=== PATIENT | male | born 1930 | race Caucasian/White ===

== ENCOUNTER 2017-10-20 11:16 | Inpatient (IN) | payer OTHER ==
[2017-10-20 12:06] VITALS: BMI 29.5
[2017-10-20] MEDS ORDERED: NITROSTAT SL PRN (12:41)
[2017-10-20] MEDS ORDERED: VISTARIL INJ IM PRN (12:41)
[2017-10-20] MEDS ORDERED: MORPHINE 4 MG/ML VIAL IVP PRN (12:41)
[2017-10-20] MEDS ORDERED: TYLENOL PO PRN (12:41)
[2017-10-20] MEDS ORDERED: ATROPINE SULFATE PFS IVP PRN (12:41)
[2017-10-20] MEDS ORDERED: DECADRON 4 MG/ML SDV IM STA (12:47)
[2017-10-20] MEDS ORDERED: XANAX PO PRN (13:04)
[2017-10-20] MEDS: CARDIZEM PO SCH ×2 (14:07→20:42)
[2017-10-20] MEDS: ELIQUIS PO SCH ×2 (14:07→20:43)
[2017-10-20] MEDS: TORADOL IVP SCH ×2 (14:08→20:45)
[2017-10-20] MEDS: HYZAAR 50-12.5 MG TAB PO SCH (14:08)
[2017-10-20] MEDS: ZEBETA PO SCH (14:09)
--- NOTE | 2017-10-20 14:16 | DI ---
Exam: Two views of the chest. Comparison: None available. Reason for exam: Short of breath. FINDINGS: No pneumothorax, pleural effusion, or focal consolidation. The cardiac silhouette is not enlarged. The imaged osseous structures appear grossly unremarkable without evidence of acute fractu re. Impression: No acute cardiopulmonary process.
--- NOTE | 2017-10-20 14:36 | CT ---
EXAM: CT lumbar spine without contrast. HISTORY: Lower back pain COMPARISON: CT abdomen pelvis same day and CT lumbar spine 06/07/2013 TECHNIQUE: Serial axial images of the spine were obtained from the lower thoracic spine through the pelvis without contrast. These were viewed in multiple planes. FINDINGS: Vertebral bodies demonstrate normal height, disc space and alignment. There is no acute c ompression fracture. There are few scattered anterior disc osteophytes. There is moderate facet art hropathy. Posterior processes and transverse processes are normal. There is unchanged area of increas ed density posterior epidural space at T11-T12. L1-L2: There is no central or neural foraminal narrowing. L2-L3: Small broad-based disc bulge and facet arthropathy with no central or neural foraminal narrowi ng. L3-L4: Small broad-based disc bulge and facet arthropathy with mild to moderate neural foraminal narr owing bilaterally. L4-L5: Broad-based disc bulge with mild facet arthropathy. There is bilateral moderate neural forami nal narrowing. L5-S1: Broad-based disc bulge with no central or neural foraminal narrowing. Limited views of the soft tissues are better evaluated on same day CT. IMPRESSION: 1. No acute compression fracture or subluxation. 2. Multilevel degenerative disease with scattered areas of neural foraminal narrowing as above, most pronounced at L4-L5 with moderate bilateral neural foraminal narrowing. 3. No change in the increased density posterior in the epidural space at T11-T12.
--- NOTE | 2017-10-20 14:37 | CT ---
Exam: CT thoracic spine without intravenous contrast. Comparison: None available. Reason for exam: Pain. FINDINGS: There is mild basilar atelectasis. No acute fracture or malalignment. The vertebral body and intervertebral body disc space heights are relatively well maintained. There is a normal appearing thoracic kyphotic curve. No evidence of li sthesis. Impression No acute fracture or listhesis is seen within the thoracic spine.
--- NOTE | 2017-10-20 14:38 | CT ---
EXAM: The abdomen pelvis with contrast HISTORY: Upper abdominal pain, back pain COMPARISON: None TECHNIQUE: CT abdomen pelvis performed with intravenous contrast. Coronal and sagittal reformatted images obtained. FINDINGS: Bilateral gynecomastia. Mild dependent density lung bases. No free air. No acute abnorm alities of the bones. Chronic metallic density in the epidural region T11-T12. Degenerative change in the spine. Please refer to separate report CT spine. Heart normal in size. Liver appears normal. There is a gallstone. Pancreas appears normal. Spleen appears normal. Adrenals appear normal. Ki dneys appear normal. Aorta normal in caliber with moderate calcified and noncalcified atheroscleroti c plaque with minimal atherosclerotic web suggested. Mild bladder wall thickening. Prostate moderate ly enlarged. No lymphadenopathy or ascites. Minimal fat-containing periumbilical hernia. Stomach ap pears normal. No dilated loops small bowel. Appendix appears normal. Colon unremarkable. IMPRESSION: 1. Prostate moderately enlarged. Mild bladder wall thickening may relate to changes of chronic outl et obstruction or cystitis. 2. Cholelithiasis. 3. Atherosclerosis 4. Chronic metallic density in the epidural region T11-T12. Degenerative change in the spine. Pleas e refer to separate report CT spine.
[2017-10-20] MEDS: FERROUS SULFATE PO SCH (20:42)
[2017-10-20] MEDS: XANAX PO SCH (20:42)
[2017-10-20] MEDS: CRESTOR PO SCH (20:44)
[2017-10-20] MEDS ORDERED: NON-FORMULARY MEDICATION (Rosuvastatin Calcium [Crestor] 5 MG) PO SCH (21:00)
[2017-10-20] MEDS ORDERED: CRESTOR PO SCH (21:00)
[2017-10-21] MEDS: PROTONIX PO SCH (06:29)
[2017-10-21] MEDS: TORADOL IVP SCH ×3 (06:29→21:50)
[2017-10-21] MEDS ORDERED: ASPIRIN EC PO SCH (08:00)
[2017-10-21] MEDS: HYZAAR 50-12.5 MG TAB PO SCH (08:50)
[2017-10-21] MEDS: CARDIZEM PO SCH ×2 (08:51→20:14)
[2017-10-21] MEDS: ELIQUIS PO SCH ×2 (08:51→20:16)
[2017-10-21] MEDS: ZEBETA PO SCH (08:51)
[2017-10-21] MEDS: FERROUS SULFATE PO SCH ×2 (08:51→20:15)
[2017-10-21] MEDS: MULTIVITAMIN TABLET PO SCH (08:51)
[2017-10-21] MEDS: ASPIRIN EC PO SCH (08:51)
[2017-10-21] MEDS: FLOMAX PO SCH (08:51)
[2017-10-21] MEDS ORDERED: FLOMAX PO SCH (09:00)
[2017-10-21] MEDS ORDERED: CARDIZEM PO SCH (09:00)
[2017-10-21] MEDS ORDERED: NON-FORMULARY MEDICATION (Multivitamin 1 TAB) PO SCH (09:00)
[2017-10-21] MEDS ORDERED: MULTIVITAMIN TABLET PO SCH (09:00)
[2017-10-21] MEDS ORDERED: FERROUS SULFATE PO SCH (09:00)
[2017-10-21] MEDS: CRESTOR PO SCH (20:15)
[2017-10-21] MEDS: XANAX PO SCH (20:22)
[2017-10-22] MEDS: TORADOL IVP SCH ×3 (05:48→20:59)
[2017-10-22] MEDS: PROTONIX PO SCH (05:49)
[2017-10-22] MEDS: ZEBETA PO SCH (08:58)
[2017-10-22] MEDS: HYZAAR 50-12.5 MG TAB PO SCH (08:58)
[2017-10-22] MEDS: CARDIZEM PO SCH ×2 (08:58→20:19)
[2017-10-22] MEDS: MULTIVITAMIN TABLET PO SCH (08:58)
[2017-10-22] MEDS: ELIQUIS PO SCH ×2 (08:58→20:20)
[2017-10-22] MEDS: FERROUS SULFATE PO SCH ×2 (08:58→20:19)
[2017-10-22] MEDS: ASPIRIN EC PO SCH (08:59)
[2017-10-22] MEDS: FLOMAX PO SCH (08:59)
[2017-10-22] MEDS: CRESTOR PO SCH (20:19)
[2017-10-22] MEDS: XANAX PO SCH (20:20)
[2017-10-23] MEDS: TORADOL IVP SCH ×3 (05:29→21:06)
[2017-10-23] MEDS: PROTONIX PO SCH (05:31)
[2017-10-23] MEDS: CARDIZEM PO SCH ×2 (08:18→20:58)
[2017-10-23] MEDS: HYZAAR 50-12.5 MG TAB PO SCH (08:18)
[2017-10-23] MEDS: MULTIVITAMIN TABLET PO SCH (08:19)
[2017-10-23] MEDS: FLOMAX PO SCH (08:19)
[2017-10-23] MEDS: ASPIRIN EC PO SCH (08:19)
[2017-10-23] MEDS: ZEBETA PO SCH (08:19)
[2017-10-23] MEDS: FERROUS SULFATE PO SCH ×2 (08:19→20:59)
[2017-10-23] MEDS: ELIQUIS PO SCH ×2 (08:20→21:01)
--- NOTE | 2017-10-23 09:08 | PCM.PROG ---
Attending Provider: ATTENDING PROVIDER: Dr. ROBIN VÁZQUEZ This patient is seen with Shiloh Ortiz, Nurse Practitioner. DATE OF SERVICE: 10/23/17 SUBJECTIVE: This 87 year old WHITE/ M was hospitalized 10/20/17. The patient is sitting in the chair, alert. He has had a recent onset of atrial fibrillation over the weekend controlled with Cardizem and Zebeta currently in regular sinus rhythm. The patient is scheduled for an echocardiogram by Dr. Vázquez today. He states his pain is under control however he seems somewhat confused. REVIEW OF SYSTEMS: CONSTITUTIONAL: Weakness. No night sweats. No malaise, lethargy. No fever or chills. HEENT: Eyes: No visual changes. No eye pain. No eye discharge. ENT: No runny nose. No epistaxis. No sinus pain. No odynophagia. No congestion. RESPIRATORY: No cough, no congestion. No hemoptysis. No shortness of breath. CARDIOVASCULAR: No angina symptoms. No CHF symptoms. No atypical chest pain for CAD. No palpitations. No orthopnea.. GASTROINTESTINAL: No abdominal pain. No nausea or vomiting. No diarrhea or constipation. No hematemesis. No hematochezia. GENITOURINARY: No urgency. No frequency. No dysuria. No hematuria. No obstructive symptoms. No discharge. No pain. No significant abnormal bleeding. MUSCULOSKELETAL: No musculoskeletal pain; no joint swelling. NEUROLOGICAL: Awake, alert, oriented to time, place and person. No headache. No neck pain. No syncope. No seizures. No dizziness. PSYCHIATRIC: Not anxious. No depression. No suicidal thoughts. No homicidal thoughts. SKIN: No rash. No lesions. No wounds. ENDOCRINE: No unexplained weight loss. No weight gain. HEMATOLOGIC/LYMPHATIC: No anemia. No purpura. No petechiae. No prolonged or excessive bleeding. No palpable lymph nodes. PHYSICAL EXAMINATION: GENERAL: The patient is awake, alert and oriented to person and place sitting in chair in no distress. VITAL SIGNS: Temperature 97.4 F, Pulse 53, Respiratory Rate 16, BP 115/57, Pulse Ox 95% HEENT: Head normocephalic, atraumatic. Eyes: Extraocular muscles are intact. Pupils are equal, round and reactive to light and accommodation. Ears: No lesions. Nose appeared normal. Throat: No exudate or erythema. NECK: Supple. No JVD, no carotid bruit. No lymphadenopathy or thyromegaly. LUNGS: Diminished breath sounds. Clear to auscultation. Percussion note normal. Chest symmetrical. HEART: Regular rate and rhythm. S1, S2, no S3. No murmurs. No cyanosis or clubbing. No ascites. Pulses: Dorsalis pedis and posterior tibial pulses +1 to +2 both sides. ABDOMEN: Soft. Non-tender. Bowel sounds active. No CVA tenderness. No mass felt. EXTREMITIES: No edema. Full range of motion of all extremities, equal. NEUROLOGIC: No focal deficit. Cranial nerves II through XII are grossly intact. No headache, no double vision or headache. SKIN: Not dry. Intact. Turgor-normal. LYMPHATIC: No palpable lymph nodes/no lymphedema. MUSCULOSKELETAL: Normal joints with no swelling. Muscle tone is normal. LAB REVIEW: 10/23/17 04:05 10/23/17 04:05 10/23/17 04:05: Sodium 142, Potassium 3.8, Chloride 107, Carbon Dioxide 27, Anion Gap 11.8, BUN 43 H, Creatinine 1.89 H, Estimated GFR (MDRD) 34.00, BUN/ Creatinine Ratio 22.75, Glucose 158 H, Calcium 8.7, Total Bilirubin 0.3, AST 12 L, ALT 17, Alkaline Phosphatase 62, Total Protein 6.3, Albumin 3.5, Globulin 2.8 , Albumin/Globulin Ratio 1.25 10/23/17 04:05: WBC 7.83, RBC 3.83 L, Hgb 11.7 L, Hct 35.6 L, MCV 93.0, MCH 30.5 , MCHC 32.9, RDW Coeff of Елена 13.2, Plt Count 147, Immature Gran % (Auto) 0.4, Neut % (Auto) 56.6, Lymph % (Auto) 34.0, [place] % (Auto) 6.1, Eos % (Auto) 2.0, Baso % (Auto) 0.9, Immature Gran # (Auto) 0.0, Neut # (Auto) 4.4, Lymph # (Auto ) 2.7, [place] # (Auto) 0.5, Eos # (Auto) 0.2, Baso # (Auto) 0.1 ASSESSMENT: 1. New onset atrial fibrillation, rate controlled 2. Right sciatica 3. Abdominal pain resolved 4. Chronic kidney disease PLAN: 1. Decrease Eliquis 2.5 mg b.i.d. 2. PT evaluation 3. Echocardiogram today Plan and coordination of the patient's care discussed in the presence of Microelectronics Engineer and nurse. CONDITION: Stable SCRIBED BY: ALIA GARCIA Filter Press Supervisor scribed while in presence of service performed by Dr. Vázquez/Shiloh Ortiz APRN on 10/23/17 ([id number])
--- NOTE | 2017-10-23 11:12 | HP ---
DATE OF SERVICE: 10/20/17 REASON FOR HOSPITALIZATION/HISTORY OF PRESENT ILLNESS: For past two weeks having upper abdominal pain radiates to back-right side of back. No diarrhea or nausea. Midthoracic/lower back. Hard to walk, hurts to move. Also right sciatica type pain. 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 HEENT: No sinus drainage, no sore throat. RESPIRATORY: No cough, no congestion. CARDIOVASCULAR: No atypical chest pain for coronary artery disease. No angina , CHF symptoms, palpitations or shortness of breath. GASTROINTESTINAL: No melena or abdominal pain. No GERD. GENITOURINARY: No hematuria, no prostatism, no polyuria. JEWELRY FACER: No blackout, no dizziness, no headache, no double vision. MUSCULOSKELETAL: Osteoarthritis pain, no joint swelling. ENDOCRINE: No weight loss, Weight gain; 4 pounds. SKIN: Not dry, no rash. PSYCHIATRIC: Not anxious, no depression, no suicidal thoughts, no homicidal thoughts. SOCIAL HISTORY: Marital Status: . Alcohol Usage: No. Tobacco Usage: No. FAMILY HISTORY: Father Mother Brother 1 Sister 2 half sisters MEDICATIONS: Xanax 0.5mg PO daily PRN Eye vitamins Flomax 0.4mg take one daily Aspirin 81mg PO daily Crestor 5mg PO daily Iron two daily Vitamins ALLERGIES: Penicillin Levaquin PHYSICAL EXAMINATION: V/S: Pulse 90, blood pressure 180/74, oxygen saturation 93%. Height 5'8", BMI 30.8 and weight 202.8. GENERAL APPEARANCE: Oriented times three. HEENT: Normal. NECK: No JVP, no bruits. RESPIRATORY: Decreased breath sounds. CARDIOVASCULAR: S1, S2, no S3, no murmurs. No cyanosis, clubbing. No ascites. GI/ABDOMEN: No tenderness. Bowel sounds are active. EXTREMITIES: edema, pulses +1, equal. JEWELRY FACER: Deep tendon reflexes, sensory, motor and gait all normal. RECTAL: 03-04 Dr. Cervantes refused repeat/PROSTATE: 05-14 (3.4). LABS: SED rate 16, Urine negative, CT of the L spine shows no acute compression fracture, scattered areas of neural foraminal narrowing most pronounced at L4- L5. Sodium 141, potassium 3.9, BUN 18, creatinine 1.18, GFR 59, Alkaline phosphatase 85, AST 20, ALT 21, BNP 144, TSH 2.7, hgb 13.4, hct 39.1, plt count 160. Chest x-ray normal. CT of the T spine was normal. CT of the abdomen and pelvis show enlarged prostate, mild bladder wall thickening, Cholelithiasis and Arthrosclerosis. ASSESSMENT: 1. Abdominal pain-back 2. DJD spine, T spine 3. Right sciatica 4. Hypertension 5. Diabetes Mellitus type 2 -18 (5.8) 6. Hyperglycemia 7. Neuralgia 8. Met Syndrome 9. Anemia 10.BPH 11.Chronic kidney disease stage 2 12.Polyarthritis 13.Trigeminal neuralgia 14.Severe DJD spine 15.Obesity 16.Hypogonadism 17.EMANI 18.Hypertension PLAN: 1. Admit 2. Routine telemetry orders 3. Diet regular 4. Hyzaar 50-12.5 PO daily and one now 5. T4 and TSH 6. 1cc Decadron AM 7. Toradol 30mg IV now and Q [address] scan T spine/L spine 9. CT scan abdomen and pelvis with contrast 10.Zebeta 5mg PO daily 11.Flomax 0.4mg PO daily 12.Crestor 5mg PO daily 13.Baby Aspirin PO daily 14.Xanax 0.5mg PO daily 15.Protonix 4mg PO daily 16.BNP/Sed rate and TSH TIME SPENT: More than 70 minutes. MTDD
[2017-10-23] MEDS: CRESTOR PO SCH (20:59)
[2017-10-23] MEDS: XANAX PO SCH (20:59)
[2017-10-24] MEDS: TORADOL IVP SCH ×2 (05:08→12:07)
[2017-10-24] MEDS: PROTONIX PO SCH (05:47)
[2017-10-24] MEDS: FERROUS SULFATE PO SCH (08:40)
[2017-10-24] MEDS: MULTIVITAMIN TABLET PO SCH (08:40)
[2017-10-24] MEDS: CARDIZEM PO SCH (08:40)
[2017-10-24] MEDS: HYZAAR 50-12.5 MG TAB PO SCH (08:40)
[2017-10-24] MEDS: FLOMAX PO SCH (08:41)
[2017-10-24] MEDS: ZEBETA PO SCH (08:41)
[2017-10-24] MEDS: ASPIRIN EC PO SCH (08:41)
[2017-10-24] MEDS: ELIQUIS PO SCH (08:41)
--- NOTE | 2017-10-24 09:38 | PN ---
DATE OF SERVICE: 10/23/17 SUBJECTIVE: The patient has some abdominal pain in the epigastric area. I explained to him that it could be cholelithiasis. He didn't want anything to be done. The patient 's creatinine is 1.8, BUN 43 which is rising and was in atrial fib yesterday. He is off and on noted to be in atrial fib but mainly is in sinus rhythm. The patient's pauses were 1.9 seconds a couple of them noted a couple of days ago. Sciatica is under control but he still has some pain. Hypertension is under control; in fact, his blood pressure is on the lower side. The patient was seen and examined with the nurse practitioner. TIME SPENT: More than 30 minutes. Plan and coordination of the patient's care discussed in the presence of nurse. TARA
[2017-10-24 10:12] VITALS: BP 126/50; TEMP 97.4
--- NOTE | 2017-10-24 14:30 | PN ---
DATE OF SERVICE: 10/24/17 SUBJECTIVE: The patient was seen and examined today. The patient is doing well and he doesn' t have any abdominal pain. Complaining of mild back pain. His problems were hypertension which seems to be well controlled, cholelithiasis which maybe asymptomatic but has abdominal pain intermittently not with food tho. The patient doesn't want to have anything done about it for now as far as cholelithiasis is concerned. The patient has back problems and doesn't want any referred to Neurosurgeon has sciatica. Also he was found to have atrial flutter/ fib intermittent. She was put on Cardizem but lately he has been taken off without Cardizem and just on Hyzaar antihypertensive. His blood pressure is under control and he doesn't need any medicine for his atrial fibrillation at present time. Echo showed LVH with enlarged LA cavity which was 4.2cm with normal LV contractility. He is agreeable for Eliquis and Novel blood thinner. He did decline Warfarin. The patient was explained about Eliquis and it's side effects like GI bleed, intracranial bleed and advised not to take any nonsteroidal inflammatory. REVIEW OF SYSTEMS: CONSTITUTIONAL: No night sweats. No fatigue, malaise, lethargy. No fever or chills. HEENT: Eyes: No visual changes. No eye pain. No eye discharge. ENT: No runny nose. No epistaxis. No sinus pain. No sore throat. No odynophagia. No congestion. RESPIRATORY: No cough, no congestion. No hemoptysis. No shortness of breath. CARDIOVASCULAR: No angina symptoms. No CHF symptoms. No atypical chest pain for CAD. No palpitations. No orthopnea. GASTROINTESTINAL: No abdominal pain. No nausea or vomiting. No diarrhea or constipation. No hematemesis. No hematochezia. GENITOURINARY: No urgency. No frequency. No dysuria. No hematuria. No obstructive symptoms. No discharge. No pain. No significant abnormal bleeding. MUSCULOSKELETAL: No musculoskeletal pain; no joint swelling. NEUROLOGICAL: No headache. No neck pain. No syncope. No seizures. No dizziness. PSYCHIATRIC: Not anxious. No depression. No suicidal thoughts. No homicidal thoughts. SKIN: No rash. No lesions. No wounds. ENDOCRINE: No unexplained weight loss. No weight gain. HEMATOLOGIC/LYMPHATIC: No anemia. No purpura. No petechiae. No prolonged or excessive bleeding. No palpable lymph nodes. PHYSICAL EXAMINATION: HEENT: Head normocephalic, atraumatic. Eyes: Extraocular muscles are intact. Pupils are equal, round and reactive to light and accommodation. Ears: No lesions. Nose appeared normal. Throat: No exudate or erythema. NECK: Supple. No JVD, no carotid bruit. No lymphadenopathy or thyromegaly. LUNGS: Decreased breath sounds but clear to auscultation. Percussion note normal. Chest symmetrical. HEART: S1, S2, no S3. No murmurs. No cyanosis or clubbing. No ascites. Pulses: Dorsalis pedis and posterior tibial pulses +1 to +2 both sides. ABDOMEN: Soft. Nontender. Bowel sounds active. No CVA tenderness. No mass felt. EXTREMITIES: No edema. Full range of motion of all extremities, equal. NEUROLOGIC: No focal deficit. Cranial nerves II through XII are grossly intact. No headache, no double vision or headache. SKIN: Not dry. Intact. Turgor - normal. LYMPHATIC: No palpable lymph nodes/no lymphedema. MUSCULOSKELETAL: Normal joints with no swelling. Muscle tone is normal. ASSESSMENT: 1. Hypertension, controlled 2. Abdominal pain, resolved 3. Back pain, under control 4. History of atrial flutter intermittent paroxysmal PLAN: 1. Declined any further evaluation but line technician 2. CHADS Vasc score is 3 CONDITION: Stable. TIME SPENT: More than 30 minutes. Plan and coordination of the patient's care discussed in the presence of nurse. TARA
--- NOTE | 2017-10-24 16:48 | CM.DICTOOL ---
ADMISSION: 10/20/17 11:16 DISCHARGE: 10/24/17 DATE OF SERVICE: 10/24/17 FINAL DIAGNOSIS ABDOMINAL PAIN SCIATICA, RIGHT HYPERTENSION NEW ONSET ATRIAL FIBRILLATION, PROXYSMAL (STARTED ON ELIQUIS) DEGENERATIVE DISC DISEASE, MULTILEVEL SPINE DM, TYPE 2 (HGAIC 5.8 ON 05/26/17) CHOLELITHIASIS NEURALGIA METABOLIC SYNDDROME ANEMIA BPH CKD, STAGE 2 POLYARTHRITIS TRIGEMINAL NEURALGIA HYPOGONADISM FORMER SMOKER LAST VITALS Temp Pulse Resp BP Pulse Ox 97.4 F L 57 L 20 126/50 L 97 10/24/17 10:00 10/24/17 10:00 10/24/17 10:00 10/24/17 10:00 10/24/17 10:00 TAKE THESE MEDICATIONS AT HOME Alprazolam (Xanax) 0.5 mg PO BEDTIME [facility] Last Admin: 10/23/17 20:59 Dose: 0.5 mg Apixaban (Eliquis) 2.5 mg PO BID [facility] Last Admin: 10/24/17 08:41 Dose: 2.5 mg Aspirin (Aspirin Ec) [facility] Last Admin: 10/24/17 08:41 Dose: 81 mg Bisoprolol Fumarate (Zebeta) 5 mg PO BID [facility] Last Admin: 10/24/17 08:41 Dose: 5 mg Ferrous Sulfate (Ferrous Sulfate) 324 mg PO BID [facility] Last Admin: 10/24/17 08:40 Dose: 324 mg Losartan Potassium (Cozaar 50 Mg Tab) 1 tab PO DAILY [facility] Last Admin: 10/24/17 08:40 Dose: 1 tab Multivitamins (Multivitamin Tablet) 1 tab PO DAILY [facility] Last Admin: 10/24/17 08:40 Dose: 1 tab Pantoprazole Sodium (Protonix) 40 mg PO QDAC [facility] X 30 DAYS ONLY Last Admin: 10/24/17 05:47 Dose: 40 mg Rosuvastatin Calcium (Crestor) 5 mg PO BEDTIME [facility] Last Admin: 10/23/17 20:59 Dose: 5 mg Tamsulosin HCl (Flomax) 0.4 mg PO DAILY [facility] Last Admin: 10/24/17 08:41 Dose: 0.4 mg ALLERGIES levofloxacin [From Levaquin] Adverse Reaction (Verified 10/21/17 01:45) Penicillins Adverse Reaction (Verified 10/21/17 01:46) NEW PRESCRIPTIONS: APIXABAN (ELIQUIS) 2.5 MG PO BID BISOPROLOL FURMARATE (ZEBETA) 5 MG PO BID [place] POTASSIUM (COZAAR) 50 MG PO DAILY PANTOPRAZOLE SODIUM (PROTONIX) 40 MG PO QAM BEFORE BREAKFAST SMOKING: FORMER SMOKER NONE NOW DISEASE SPECIFIC EDUCATION: ATRIAL FIBRILLATION, PAROXYSMAL CHRONIC KIDNEY DISEASE HYPERTENSION ABDOMINAL PAIN DEGENERATIVE DISC DISEASE OF THE SPINE ELIQUIS NEW PRESCRIPTIONS HOME MEDICATIONS FOLLOW UP LAB REVIEW: 10/24/17 04:30 10/24/17 04:30 10/24/17 04:30: Sodium 141, Potassium 3.7, Chloride 107, Carbon Dioxide 26, Anion Gap 11.7, BUN 42 H, Creatinine 1.72 H, Estimated GFR (MDRD) 38.00, BUN/ Creatinine Ratio 24.41, Glucose 121 H, Calcium 8.3, Total Bilirubin 0.4, AST 14 L, ALT 22, Alkaline Phosphatase 64, Total Protein 5.9, Albumin 3.3 L, Globulin 2.6, Albumin/Globulin Ratio 1.27 10/24/17 04:30: WBC 7.76, RBC 3.70 L, Hgb 11.1 L, Hct 33.9 L, MCV 91.6, MCH 30.0 , MCHC 32.7, RDW Coeff of Елена 13.0, Plt Count 141, Immature Gran % (Auto) 0.3, Neut % (Auto) 58.5, Lymph % (Auto) 31.1, [place] % (Auto) 5.9, Eos % (Auto) 3.4, Baso % (Auto) 0.8, Immature Gran # (Auto) 0.0, Neut # (Auto) 4.6, Lymph # (Auto ) 2.4, [place] # (Auto) 0.5, Eos # (Auto) 0.3, Baso # (Auto) 0.1 PLAN: DISCHARGE HOME RETURN TO SEE DR. VÁZQUEZ IN HIS OFFICE ON 10/31/17 AT 10:45 A.M. RESUME YOUR HOME MEDICATIONS PER LIST PROVIDED BY THE NURSING STAFF NEW PRESCRIPTIONS ELIQUIS 2.5 MG, TAKE ONE TABLET BY MOUTH TWICE DAILY BISOPROLOL FUMARATE (ZEBETA) 5 MG, TAKE ONE TABLET BY MOUTH TWICE DAILY [place] POTASSIUM (COZAAR) 50 MG, TAKE ONE TABLET BY MOUTH DAILY PROTONIX 40 MG, TAKE ONE TABLET BEFORE BREAKFAST DAILY FOR 30 DAYS ACTIVITY GET PLENTY OF REST AT HOME. GRADUALLY INCREASE YOUR ACTIVITY LEVEL ACCORDING TO YOUR TOLERATION DIET HEALTHY HEART SUMMARY THE PATIENT IS ALERT AND ORIENTED X3. HE CURRENTLY RESIDES AT HOME ALONE. HIS SONS ARE SUPPORTIVE OF HIS NEEDS WHEN NECESSARY. HE IS INDEPENDENT WITH ADL'S AND REQUIRES NO ASSISTANCE FROM DME, HOME HEALTH OR HOMEMAKING. HE DESIRES TO RETURN HOME AT DISCHARGE. THE SKIN TURGOR IS INTACT. THERE ARE NO DECUBITUS ULCERS PRESENT AT DISCHARGE. HYDRATION AND NUTRITIONAL STATUS ARE IMPROVED SINCE ADMISSION. THE PATIENT'S CARDIAC RHYTHM IS INTERMITTENTLY IN A-FIB WITH A CONTROLLED RATE AND SINUS RHYTHM. HE IS AGREEABLE TO TAKE THE MEDICATIONS PRESCRIBED INCLUDING THE ELIQUIS. HIS RACHEL II SCORE IS 3. HE HAD A 2-D ECHO COMPLETED DURING THIS STAY. EJECTION FRACTION, VALVES AND WALL MOTION ARE NORMAL. HIS BACK PAIN HAS SUBSIDED TO A LEVEL HE IS ABLE TO TOLERATE. MR. ADORNO TELLS US HE DESIRES TO USE TYLENOL [id number] MEDICATION FOR OCCASIONAL BACK PAIN. MR. CORTES IS AWARE OF THE PRESENCE OF CHOLELITHIASIS. IN VIEW OF HIS ADVANCED AGE, HE HAS DECLINED SURGERY AND DESIRES MORE CONSERVATIVE MEASURES TO TREAT SYMPTOMS THEY OCCUR FOR NOW. HIS RENAL LABS HAVE BEGUN TO SHOW IMPROVEMENT. THE KIDNEY FUNCTION WILL BE MONITORED THROUGH OFFICE VISITS. MR. ADORNO IS AWARE AND AGREEABLE FOR TODAY'S DISCHARGE PLANS. HE HAS SHOWN POSITIVE CLINICAL PROGRESS DURING THIS STAY. CURRENT CODE STATUS FULL CODE ROBIN VÁZQUEZ M.D.
--- NOTE | 2017-10-26 14:29 | DS ---
DATE OF SERVICE: 10/24/17 FINAL DIAGNOSIS: ABDOMINAL PAIN SCIATICA, RIGHT HYPERTENSION NEW ONSET ATRIAL FIBRILLATION, PROXYSMAL (STARTED ON ELIQUIS) DEGENERATIVE DISC DISEASE, MULTILEVEL SPINE DM, TYPE 2 (HGAIC 5.8 ON 05/26/17) CHOLELITHIASIS NEURALGIA METABOLIC SYNDDROME ANEMIA BPH CKD, STAGE 2 POLYARTHRITIS TRIGEMINAL NEURALGIA HYPOGONADISM FORMER SMOKER LAST VITALS: Temp Pulse Resp BP Pulse Ox 97.4 F L 57 L 20 126/50 L 97 TAKE THESE MEDICATIONS AT HOME: Alprazolam (Xanax) 0.5 mg PO BEDTIME ALEX Apixaban (Eliquis) 2.5 mg PO BID ALEX Aspirin (Aspirin Ec) 81 mg PO DAILYWM ALEX Bisoprolol Fumarate (Zebeta) 5 mg PO BID ALEX Ferrous Sulfate (Ferrous Sulfate) 324 mg PO BID ALEX Losartan Potassium (Cozaar 50 Mg Tab) 1 tab PO DAILY ALEX Multivitamins (Multivitamin Tablet) 1 tab PO DAILY ALEX Pantoprazole Sodium (Protonix) 40 mg PO QDAC ALEX X 30 DAYS ONLY Rosuvastatin Calcium (Crestor) 5 mg PO BEDTIME ALEX Tamsulosin HCl (Flomax) 0.4 mg PO DAILY ALEX ALLERGIES: levofloxacin [From Levaquin] Adverse Reaction (Verified 10/21/17 01:45) Penicillins Adverse Reaction (Verified 10/21/17 01:46) NEW PRESCRIPTIONS: APIXABAN (ELIQUIS) 2.5 MG PO BID BISOPROLOL FURMARATE (ZEBETA) 5 MG PO BID LOSARTAN POTASSIUM (COZAAR) 50 MG PO DAILY PANTOPRAZOLE SODIUM (PROTONIX) 40 MG PO QAM BEFORE BREAKFAST SMOKING: FORMER SMOKER NONE NOW DISEASE SPECIFIC EDUCATION: ATRIAL FIBRILLATION, PAROXYSMAL CHRONIC KIDNEY DISEASE HYPERTENSION ABDOMINAL PAIN DEGENERATIVE DISC DISEASE OF THE SPINE ELIQUIS NEW PRESCRIPTIONS HOME MEDICATIONS FOLLOW UP PLAN: DISCHARGE HOME RETURN TO SEE DR. VÁZQUEZ IN HIS OFFICE ON 10/31/17 AT 10:45 A.M. RESUME YOUR HOME MEDICATIONS PER LIST PROVIDED BY THE NURSING STAFF ACTIVITY: GET PLENTY OF REST AT HOME. GRADUALLY INCREASE YOUR ACTIVITY LEVEL ACCORDING TO YOUR TOLERATION DIET: [facility] COURSE: 87 year old white male hospitalized with multiple complains of back pain, right sciatica and abdominal pain and hypertension. The patient noted on admission to have atrial fibrillation/flutter with rate of 110 per minute. He was put on Cardizem and his heart rate slowed down to 45 to 50 per minute at times with 1.9 seconds couple of pauses. His blood pressure also went down with Hyzaar and Cardizem combination. Later on the patient was taken off of Cardizem. He stay in sinus rhythm for 2-3 days but later on again went back into atrial fibrillation with normal ventricular response. At the time of discharge he was noted to be in sinus rhythm with first degree AV block. The patient's condition is stable. He was found to have cholelithiasis for which he wants to wait and not have anything done. The diet was discussed. Also doesn't want anything to be done about his back problems except for Tylenol and muscle relaxers. The patient had an echo done which showed LA cavity 4.2 with normal LV contractility with LVH. He was explained about these findings. The patient doesn 't want any referral to the electrophysiologists for now. He was put on Eliquis and side effects of Eliquis with GI bleed and intracranial bleed discussed with the patient. The patient is up and about doing well and back exercises discussed with him. Condition at the time of discharge is stable. TIME SPENT: More than 60 minutes. LEAHD
--- NOTE | 2017-10-26 14:30 | PN ---
10/20/17: Level 5 10/21/17: Intermediate 10/22/17: Intermediate 10/23/17: Intermediate 10/24/17: D as in discharge MTDD
--- NOTE | 2017-10-26 14:32 | ECHO2D ---
Date of Exam: 10/24/17 Ordering Physician: ROBIN VÁZQUEZ MD Room # : 115 Reason for Echo: ATRIAL FIBRILLATION, HYPERTENSION M-Mode Normal Adult Results LV Dimensions Normal Adult Results AoV Opening excursions >1.6 >1.6 LVEDD-base- 3.5-5.8 4.4 Ao root dimensions 2.0-3.7 3.7 LVESD-base- 3.1-4.6 L. Atrium dimensions 1.9-3.8 4.2 Post. Wall thickness 0.8-1.1 1.4 IV septum (thickness) 0.7-1.2 1.4 Post. Wall excursion 0.72-1.3 NORMAL Septal motion NORMAL Systolic motion R. Ventricular cavity 1.5-2.0 NORMAL LVEF 60% 73% Paradoxical septal wall motion NORMAL 2-D : ENLARGED LEFT ATRIAL CAVITY. 2-D M Mode Echocardiogram was performed using apical four chamber and left parasternal long and short axis views. Mitral, tricuspid and aortic valves appear to be normal. Contractility of the left ventricle seems to be normal, so is the cavity size. Left atrial cavity size and aortic root appear to be normal. There is no pericardial effusion. There is no thrombus noted in the left ventricular or left aortic cavity. No mitral valve prolapse noted. M-MODE: MV: NORMAL AV: NORMAL TV: NORMAL PV: CHAMBER SIZE: ENLARGED LEFT ATRIAL CAVITY WALL MOTION: NORMAL PERICARDIUM: NORMAL INTERPRETATION: 1. LEFT VENTRICULAR HYPERTROPHY WITH ENLARGED LEFT ATRIAL CAVITY 2. NORMAL LEFT VENTRICULAR CAVITY 3. NORMAL VALVES MTDD
--- NOTE | 2017-11-08 12:56 | PN ---
DATE OF SERVICE: 10/21/17 SUBJECTIVE: 87 white male hospitalized with abdominal pain, right sciatica and back pain nonspecific but the patient doesn't complain of much throughout his followup for past several years. On admission the patient had atrial fibrillation with rapid ventricle response. He was put on Cardizem twice a day. He is converted to since rhythm but he had some pauses. The patient's blood pressure today is 150/52. The patient has blood pressure systolic more than 180 on admission. REVIEW OF SYSTEMS: CONSTITUTIONAL: No night sweats. No fatigue, malaise, lethargy. No fever or chills. HEENT: Eyes: No visual changes. No eye pain. No eye discharge. ENT: No runny nose. No epistaxis. No sinus pain. No sore throat. No odynophagia. No congestion. RESPIRATORY: No cough, no congestion. No hemoptysis. No shortness of breath. CARDIOVASCULAR: No angina symptoms. No CHF symptoms. No atypical chest pain for CAD. No palpitations. No orthopnea. GASTROINTESTINAL: No abdominal pain. No nausea or vomiting. No diarrhea or constipation. No hematemesis. No hematochezia. Abdominal pain that he was describing epigastric is practically gone. GENITOURINARY: No urgency. No frequency. No dysuria. No hematuria. No obstructive symptoms. No discharge. No pain. No significant abnormal bleeding. MUSCULOSKELETAL: No musculoskeletal pain; no joint swelling. Back pain is much better. Less pain on the side. NEUROLOGICAL: No headache. No neck pain. No syncope. No seizures. No dizziness. PSYCHIATRIC: Not anxious. No depression. No suicidal thoughts. No homicidal thoughts. SKIN: No rash. No lesions. No wounds. ENDOCRINE: No unexplained weight loss. No weight gain. HEMATOLOGIC/LYMPHATIC: No anemia. No purpura. No petechiae. No prolonged or excessive bleeding. No palpable lymph nodes. PHYSICAL EXAMINATION: GENERAL: The patient is oriented to time, place and person. VITAL SIGNS: Temperature 98, pulse 58, respiratory rate 18, blood pressure 150/ 52 and pulse ox 93% HEENT: Head normocephalic, atraumatic. Eyes: Extraocular muscles are intact. Pupils are equal, round and reactive to light and accommodation. Ears: No lesions. Nose appeared normal. Throat: No exudate or erythema. NECK: Supple. No JVD, no carotid bruit. No lymphadenopathy or thyromegaly. LUNGS: Clear to auscultation. Percussion note normal. Chest symmetrical. HEART: S1, S2, no S3. No murmurs. No cyanosis or clubbing. No ascites. Pulses: Dorsalis pedis and posterior tibial pulses +1 to +2 both sides. ABDOMEN: Soft. Nontender. Bowel sounds active. No CVA tenderness. No mass felt. EXTREMITIES: No edema. Full range of motion of all extremities, equal. NEUROLOGIC: No focal deficit. Cranial nerves II through XII are grossly intact. No headache, no double vision or headache. SKIN: Not dry. Intact. Turgor - normal. LYMPHATIC: No palpable lymph nodes/no lymphedema. MUSCULOSKELETAL: Normal joints with no swelling. Muscle tone is normal. LABS: Hgb 12.2, hct 36, WBC 7,400 normal differential, creatinine 1.3, BUN 29, potassium 4, glucose 168, BNP 144 normal. T[address]SH [address] of thoracic spine shows thoracic kyphotic curve otherwise no other acute findings. CT of the lumbar spine shows L4 L5 narrowing with moderate bilateral neural foraminal probably explaining his radiculopathy type of pain. CT of the abdomen and pelvis showed cholelithiasis, arthrosclerosis, chronic metallic density in the epidural region T11 T12. Prostate moderately enlarged, Atherosclerosis noted. ASSESSMENT: 1. Hypertension seems to be under control. The patient is on Hyzaar and also on small dose of Cardizem. 2. Right sciatica seems to be a lot better with Toradol 3. Abdominal pain subsided, the patient is on Protonix 4. 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 All reports discussed with the patient 2. The patient's pain could be from gallbladder dyspepsia CONDITION: Stable. TIME SPENT: More than 30 minutes. Plan and coordination of the patient's care discussed in the presence of nurse. TARA
--- NOTE | 2017-11-08 14:18 | PN ---
DATE OF SERVICE: 10/22/17 SUBJECTIVE: The patient was admitted with several complains; Abdominal pain going to the back with bilateral sciatica mostly on the right and hypertension. The patient' s blood pressure is controlled with blood pressure 113/54. Atrial fibrillation on admission has converted to sinus rhythm. The pauses are no more than a few second pauses noted. The patient also had the right sciatica pain which has subsided, abdominal pain has subsided. The patient has evidence of cholelithiasis. All the reports discussed with the patient with ASHD. The patient has no symptoms. He is up and about. REVIEW OF SYSTEMS: CONSTITUTIONAL: No night sweats. No fatigue, malaise, lethargy. No fever or chills. HEENT: Eyes: No visual changes. No eye pain. No eye discharge. ENT: No runny nose. No epistaxis. No sinus pain. No sore throat. No odynophagia. No congestion. RESPIRATORY: No cough, no congestion. No hemoptysis. No shortness of breath. CARDIOVASCULAR: No angina symptoms. No CHF symptoms. No atypical chest pain for CAD. No palpitations. No orthopnea. GASTROINTESTINAL: No abdominal pain. No nausea or vomiting. No diarrhea or constipation. No hematemesis. No hematochezia. GENITOURINARY: No urgency. No frequency. No dysuria. No hematuria. No obstructive symptoms. No discharge. No pain. No significant abnormal bleeding. MUSCULOSKELETAL: No musculoskeletal pain; no joint swelling. NEUROLOGICAL: No headache. No neck pain. No syncope. No seizures. No dizziness. PSYCHIATRIC: Not anxious. No depression. No suicidal thoughts. No homicidal thoughts. SKIN: No rash. No lesions. No wounds. ENDOCRINE: No unexplained weight loss. No weight gain. HEMATOLOGIC/LYMPHATIC: No anemia. No purpura. No petechiae. No prolonged or excessive bleeding. No palpable lymph nodes. PHYSICAL EXAMINATION: GENERAL: The patient is oriented to time, place and person. VITAL SIGNS: Temperature 98, pulse 63, respiratory rate 16, blood pressure 113/ 50 and pulse ox 93%. HEENT: Head normocephalic, atraumatic. Eyes: Extraocular muscles are intact. Pupils are equal, round and reactive to light and accommodation. Ears: No lesions. Nose appeared normal. Throat: No exudate or erythema. NECK: Supple. No JVD, no carotid bruit. No lymphadenopathy or thyromegaly. LUNGS: Clear to auscultation. Percussion note normal. Chest symmetrical. HEART: S1, S2, no S3. No murmurs. No cyanosis or clubbing. No ascites. Pulses: Dorsalis pedis and posterior tibial pulses +1 to +2 both sides. ABDOMEN: Soft. Nontender. Bowel sounds active. No CVA tenderness. No mass felt. EXTREMITIES: No edema. Full range of motion of all extremities, equal. NEUROLOGIC: No focal deficit. Cranial nerves II through XII are grossly intact. No headache, no double vision or headache. SKIN: Not dry. Intact. Turgor - normal. LYMPHATIC: No palpable lymph nodes/no lymphedema. MUSCULOSKELETAL: Normal joints with no swelling. Muscle tone is normal. LABS: Hgb 12.2, hct 36, WBC 7,400 normal differential, creatinine 1.3, BUN 29, potassium 4. BNP 144, T4 TSH normal. Left atrial cavity is normal size or near normal likely he may not have atrial fibrillation bad enough to be on Novel blood thinners like Eliquis, Xarelto or Pradaxa. ASSESSMENT: 1. Hypertension under control 2. Sciatica controlled with no pain 3. Abdominal pain is under control likely peptic ulcer disease could be mixed with gallbladder disease. The patient declined any evaluation or surgical evaluation for possible cholecystectomy. 4. Atrial fibrillation which was very briefly present, the patient has been in sinus rhythm PLAN: 1. Will do echocardiogram 2. All Novel blood thinners; Coumadin discussed. CONDITION: Stable. TIME SPENT: More than 30 minutes. Plan and coordination of the patient's care discussed in the presence of nurse. TARA
== END 2017-10-24 13:30 | disposition home or self-care (01) | DRG 552 ==
LOC: MEDSURG B 11:16
PROVIDERS: ADMIT Internal Medicine; ATTEND Internal Medicine
DX: M51.34 Other intervertebral disc degeneration, thoracic region (principal); M47.9 Spondylosis, unspecified; M54.6 Pain in thoracic spine; M54.31 Sciatica, right side; M79.2 Neuralgia and neuritis, unspecified; I48.0 Paroxysmal atrial fibrillation; K80.20 Calculus of gallbladder without cholecystitis without obstruction; I10 Essential (primary) hypertension; N18.2 Chronic kidney disease, stage 2 (mild); E11.8 Type 2 diabetes mellitus with unspecified complications; R73.9 Hyperglycemia, unspecified; E88.81 Metabolic syndrome and other insulin resistance; D64.9 Anemia, unspecified; N40.0 Benign prostatic hyperplasia without lower urinary tract symptoms; M13.0 Polyarthritis, unspecified; G50.0 Trigeminal neuralgia; E66.9 Obesity, unspecified; E29.1 Testicular hypofunction; F41.9 Anxiety disorder, unspecified; Z79.01 Long term (current) use of anticoagulants; Z68.29 Body mass index [BMI] 29.0-29.9, adult
CPT/HCPCS: 36415; 80053; 81001; 82550; 82553; 83880; 84439; 84443; 84484; 85025; 85651; 93005; 93010

== ENCOUNTER 2018-08-07 12:14 | Outpatient (POV) | payer OTHER | END 2018-08-07 17:00 | LOC: OUTPT 12:14 | PROVIDERS: ATTEND Otolaryngology | DX: H91.90 Unspecified hearing loss, unspecified ear (principal) | CPT/HCPCS: 92557; 92567 ==

== ENCOUNTER 2018-09-05 11:26 | Inpatient (IN) ==
[2018-09-05] MEDS ORDERED: NITROSTAT SL PRN (11:59)
[2018-09-05] MEDS ORDERED: ATROPINE SULFATE PFS IVP PRN (11:59)
[2018-09-05] MEDS ORDERED: VISTARIL INJ IM PRN (11:59)
[2018-09-05] MEDS ORDERED: TYLENOL PO PRN (11:59)
[2018-09-05 12:21] VITALS: BMI 28.1
[2018-09-05] MEDS: DEXTROSE 5%-1/2NS IV SOLUTION 1,000 ML IV SCH ×2 (13:19→23:50)
--- NOTE | 2018-09-05 13:55 | DI ---
EXAM: Chest two views HISTORY: Syncope, hypotension, status post fall COMPARISON: 10/20/2017 TECHNIQUE: Two views of the chest were performed FINDINGS: The lungs are clear. There is no pleural effusion or pneumothorax. The heart is enlarged , appears increased in size. in size. The mediastinal contour is normal, noting atherosclerosis. Th ere are no acute abnormalities of the bones. Radiopaque density in the spinal region near the lumbosa cral junction. IMPRESSION: Cardiomegaly. Heart appears increased in size and pericardial effusion cannot be exclud ed.
--- NOTE | 2018-09-05 14:20 | CT ---
EXAM: CT ABDOMEN AND PELVIS HISTORY: Fall, back pain, weight loss TECHNIQUE: CT abdomen and pelvis with intravenous contrast. Images were reconstructed using 5 mm se ction thickness. Reformations were prepared. 75 ml Visipaque. FINDINGS: Compared to 10/20/2017. Liver and spleen within normal limits. Small gallstone in an otherwise unremarkable gallbladder. Ea rly fatty lobulation of the pancreas. Adrenal glands are within normal limits. Kidneys have normal enhancement without hydronephrosis or evidence of ureteral obstruction. Moderately severe atheroscle rotic disease. Stomach is unremarkable. Normal appendix. Unremarkable bowel gas pattern. There is circumferential thickening of the urinary bladder wall. Moderate enlargement of the prostate. There is no ascites. No ventral hernia. The bones appear demineralized. Moderate degenerative changes of the spine. No acute fracture is seen. Redemonstration of a metallic density posterior to the T11/T12 interspace, a pparently near the epidural level. This is stable and of indeterminate etiology. Lung bases reveal a new small left pleural effusion with mild adjacent atelectasis. There is a new pericardial effusio n which is probably moderate in volume having an axial dimension of up to 2.1 cm within the field of view of this exam. No pneumoperitoneum is seen. IMPRESSION: 1. Generalized demineralization of the bones with degenerative changes of the spine. No acute fract ure is seen. Redemonstration of a metallic density posterior to the T11/T12 interspace, apparently n ear the epidural level. 2. There is a gallstone noted. 3. Atherosclerosis. 4. Newly developed small left pleural effusion. 5. Newly developed small to moderate pericardial effusion.
--- NOTE | 2018-09-05 14:49 | MRI ---
EXAM: Brain MRI without contrast. HISTORY: Fall with loss of consciousness. COMPARISON: None. TECHNIQUE: Multiplanar, multisequence MR images were acquired of the brain without contrast. FINDINGS: The midline structures are central and the craniocervical junction is unremarkable. The v entricles, sulci and cisterns are mildly enlarged. There are no abnormal extra-axial fluid collectio ns. The brain parenchyma has no diffusion restriction to suggest acute hypoperfusion or infarction. Ther e are small scattered T2 hyperintensities in the supratentorial white matter consistent with minor le ukomalacia. There are no abnormal foci of dark gradient echo signal. The corpus callosum is normal. The sella is mildly expanded and the pituitary gland is flattened inferiorly consistent with a most ly empty sella. There are no intraorbital masses. There has been previous lens surgery bilaterally. Hyperostosis fr ontalis interna is present. There is a well-circumscribed heterogeneous nodular lesion involving the right frontal sinus that measures 1.5 cm AP by 1.9 cm TX by 1.4 cm CC. This has a small central are a of T2 hyperintensity more peripheral dark and intermediate T1 and dark T2 signal. Clinical conside rations include an osseou lesions such as a right frontal osteoma. Head CT could better define the a natomy. Minor scattered mucosal thickening is present in the ethmoid air cells. There is mild polyp oid mucosal thickening in the left maxillary sinus and minor mucosal thickening in the right maxillar y sinus with a small mucous retention cyst or polyp along the posterior wall. The latter is favored. Mucosal thickening and fluid is present in a mild to moderate number of the right mastoid air cells and a moderate number of the left mastoid air cells. Expected flow voids are present in the major intracranial arteries and dural venous sinuses. IMPRESSION: 1. No intracranial hemorrhage or acute cerebral infarct. 2. Mild diffuse cerebral volume loss and minor chronic microvascular ischemic disease. 3. 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 4. Mild to moderate right and moderate left mastoiditis.
--- NOTE | 2018-09-05 14:54 | US ---
EXAM: ULTRASOUND CAROTID DUPLEX, BILATERAL HISTORY: Syncope FINDINGS: Singh-scale ultrasound, color Doppler and spectral analysis was performed. Velocities are in meters per second. By singh scale and color Doppler imaging, there were regions of heterogeneous plaque formation identi fied within the carotid bulbs and internal carotid arteries. At least one of these plaque regions ap peared to approach 50% vessel diameter on the right. RIGHT: External carotid artery peak systolic velocity: 1.18 Common carotid artery peak systolic velocity/end diastolic velocity: 0.58/0.15 Internal carotid artery peak systolic velocity: 1.38 ICA/CCA peak systolic velocity ratio: 2.4 ICA end diastolic velocity: 0.32 LEFT: External carotid artery peak systolic velocity: 0.85 Common carotid artery peak systolic velocity/end diastolic velocity: 0.74/0.19 Internal carotid artery peak systolic velocity: 0.92 ICA/CCA peak systolic velocity ratio: 1.2 ICA end diastolic velocity: 0.29 The right and left vertebral arteries were antegrade. IMPRESSION: 1. By singh scale and color Doppler imaging, there were regions of heterogeneous plaque formation id entified within the carotid bulbs and internal carotid arteries. At least one of these plaque region s appeared to approach 50% vessel diameter on the right. 2. The right internal carotid artery peak systolic velocity of 1.38 meters per second falls within t he moderate range of stenosis. Moderate indicates 50 - 69% vessel diameter. 3. No hemodynamically significant stenosis was demonstrated within the left carotid system. 4. Both tibial arteries were antegrade.
[2018-09-05] MEDS: ELIQUIS PO SCH (20:09)
[2018-09-05] MEDS ORDERED: NON-FORMULARY MEDICATION (Apixaban [Eliquis] 5 MG) PO SCH (21:00)
[2018-09-05] MEDS ORDERED: FLOMAX PO SCH (21:00)
[2018-09-06] MEDS: PROTONIX PO SCH (05:39)
[2018-09-06] MEDS: DEXTROSE 5%-1/2NS IV SOLUTION 1,000 ML IV SCH ×3 (05:40→21:11)
[2018-09-06] MEDS ORDERED: PROTONIX PO SCH (06:30)
[2018-09-06] MEDS ORDERED: FLOMAX ONE (08:34)
[2018-09-06] MEDS: FLOMAX PO SCH ×2 (08:36→20:27)
[2018-09-06] MEDS: ELIQUIS PO SCH ×2 (08:36→20:27)
[2018-09-06] MEDS ORDERED: FLOMAX PO SCH (09:00)
--- NOTE | 2018-09-06 09:28 | PCM.PROG ---
Attending Provider: ATTENDING PROVIDER: Dr. ROBIN VÁZQUEZ This patient is seen with Shiloh Ortiz, Nurse Practitioner. DATE OF SERVICE: 09/06/18 SUBJECTIVE: This 88 year old WHITE/ M was hospitalized 09/05/18. The patient is lying in bed resting comfortably. He had abdominal pain this morning after taking a drink of water. Liver enzymes still elevated. Sed rate elevated. CEA and hepatitis panel pending. REVIEW OF SYSTEMS: CONSTITUTIONAL: Positive for weakness. No night sweats. No fatigue, malaise, lethargy. No fever or chills. HEENT: Eyes: No visual changes. No eye pain. No eye discharge. ENT: No runny nose. No epistaxis. No sinus pain. No odynophagia. No congestion. RESPIRATORY: No cough, no congestion. No hemoptysis. No shortness of breath. CARDIOVASCULAR: No angina symptoms. No CHF symptoms. No atypical chest pain for CAD. No palpitations. No orthopnea.. GASTROINTESTINAL: Positive for abdominal pain. No nausea or vomiting. No diarrhea or constipation. No hematemesis. No hematochezia. GENITOURINARY: No urgency. No frequency. No dysuria. No hematuria. No obstructive symptoms. No discharge. No pain. No significant abnormal bleeding. MUSCULOSKELETAL: No musculoskeletal pain; no joint swelling. NEUROLOGICAL: Awake, alert but has confusion. No headache. No neck pain. No syncope. No seizures. No dizziness. PSYCHIATRIC: Not anxious. No depression. No suicidal thoughts. No homicidal thoughts. SKIN: No rash. No lesions. No wounds. ENDOCRINE: No unexplained weight loss. No weight gain. HEMATOLOGIC/LYMPHATIC: No anemia. No purpura. No petechiae. No prolonged or excessive bleeding. No palpable lymph nodes. PHYSICAL EXAMINATION: GENERAL: The patient is awake, alert and oriented, lying in bed in no distress. VITAL SIGNS: Temperature 98.2 F, Pulse 90, Respiratory Rate 16, BP 110/57, Pulse Ox 96% HEENT: Head normocephalic, atraumatic. Eyes: Extraocular muscles are intact. Pupils are equal, round and reactive to light and accommodation. Ears: No lesions. Nose appeared normal. Throat: No exudate or erythema. NECK: Supple. No JVD, no carotid bruit. No lymphadenopathy or thyromegaly. LUNGS: Diminished breath sounds. Clear to auscultation. Percussion note normal. Chest symmetrical. HEART: Irregular heart rate. S1, S2, no S3. No murmurs. No cyanosis or clubbing. No ascites. Pulses: Dorsalis pedis and posterior tibial pulses +1 to +2 both sides. ABDOMEN: Soft. Generalized abdominal tenderness. Bowel sounds active. No CVA tenderness. No mass felt. EXTREMITIES: No edema. Full range of motion of all extremities, equal. NEUROLOGIC: No focal deficit. Cranial nerves II through XII are grossly intact. No headache, no double vision or headache. SKIN: Not dry. Intact. Turgor-normal. LYMPHATIC: No palpable lymph nodes/no lymphedema. MUSCULOSKELETAL: Normal joints with no swelling. Muscle tone is normal. LAB REVIEW: 09/06/18 04:43 09/06/18 04:43 09/06/18 04:43: Sodium 138.0, Potassium 3.79, Chloride 102.8, Carbon Dioxide 26.2, Anion Gap 12.79, BUN 22.1 H, Creatinine 1.32 H, Estimated GFR (MDRD) 51.00 , BUN/Creatinine Ratio 16.74, Glucose 138.7 H, Calcium 8.49, Total Bilirubin 0.67, AST 116.6 H, ALT 278.7 H, Alkaline Phosphatase 128.5 H, Total Protein 6.25 L, Albumin 3.58, Globulin 2.67, Albumin/Globulin Ratio 1.34 09/06/18 04:43: WBC 6.23, RBC 3.11 L, Hgb 9.1 L, Hct 29.3 L, MCV 94.2 H, MCH 29.3, MCHC 31.1 L, RDW Coeff of Елена 12.8, Plt Count 307, Immature Gran % (Auto) 0.6, Neut % (Auto) 64.5, Lymph % (Auto) 22.6, [place] % (Auto) 5.9, Eos % (Auto) 5.8, Baso % (Auto) 0.6, Immature Gran # (Auto) 0.0, Neut # (Auto) 4.0, Lymph # ( Auto) 1.4, Stewart # (Auto) 0.4, Eos # (Auto) 0.4, Baso # (Auto) 0.0 09/05/18 20:16: Total Creatine Kinase 64.5, Troponin I < 0.012 09/05/18 16:28: Carcinoembryonic Ag 2.2, Hepatitis A IgM Ab Negative, Hep Bs Antigen Negative, Hep B Core IgM Ab Negative, Hep C Ab Signal/Cutoff < 0.1 09/05/18 16:28: Amylase 50.6, Lipase 45.6 09/05/18 16:28: ESR 96 H 09/05/18 13:10: Urine Color Yellow, Urine Clarity Clear, Urine pH 5.5, Ur Specific [place] 1.015, Urine Protein Trace, Urine Glucose (UA) Negative, Urine Ketones Negative, Urine Blood Negative, Urine Nitrite Negative, Urine Bilirubin Negative, Urine Urobilinogen 1.0, Ur Leukocyte Esterase Negative, Ur Squamous Epith Cells 5-10, Urine Mucus 1+ 09/05/18 12:12: Free T4 1.22 09/05/18 12:12: Sodium 139.8, Potassium 4.13, Chloride 103.6, Carbon Dioxide 27.6, Anion Gap 12.73, BUN 25.4 H, Creatinine 1.43 H, Estimated GFR (MDRD) 47.00 , BUN/Creatinine Ratio 17.76, Glucose 123.3 H, Calcium 9.04, Total Bilirubin 0.81, AST 109.7 H, ALT 284.1 H, Alkaline Phosphatase 136.5 H, Total Creatine Kinase 74.2, Troponin I < 0.012, Total Protein 6.91, Albumin 4.07, Globulin 2.84 , Albumin/Globulin Ratio 1.43, TSH 2.460 09/05/18 12:12: WBC 5.69, RBC 3.27 L, Hgb 9.7 L, Hct 30.8 L, MCV 94.2 H, MCH 29.7, MCHC 31.5 L, RDW Coeff of Елена 12.8, Plt Count 291, Immature Gran % (Auto) 0.5, Neut % (Auto) 74.6, Lymph % (Auto) 15.6, Stewart % (Auto) 5.6, Eos % (Auto) 3.0, Baso % (Auto) 0.7, Immature Gran # (Auto) 0.0, Neut # (Auto) 4.2, Lymph # ( Auto) 0.9, Stewart # (Auto) 0.3 L, Eos # (Auto) 0.2, Baso # (Auto) 0.0 09/05/18 12:10: Puncture Site Rrad, O2 Saturation 98.0, ABG pH 7.448, ABG pCO2 33.2 L, ABG pO2 93.0, ABG HCO3 22.9, ABG Total CO2 24, ABG Base Excess -1, Moncho Test +, FiO2 % 21.0 ASSESSMENT: 1. Abdominal pain. 2. Confusion. 3. Atrial fibrillation on Eliquis. 4. Anemia. 5. Elevated liver function. PLAN: 1. Carafate 1 gm t.i.d. 2. Labs pending. 3. Increase Flomax to b.i.d. 4. Decrease IV fluids to 75 mm/hr. 5. Bladder scan. 6. Continue to hold Zebeta. Plan and coordination of the patient's care discussed in the presence of Wireless Sales Representative and nurse. CONDITION: Stable SCRIBED BY: ALIA GARCIA Tool Maker scribed while in presence of service performed by Dr. Vázquez/Shiloh Ortiz APRN on 09/06/18 ([id number])
[2018-09-06] MEDS ORDERED: CARAFATE PO SCH ×2 (11:00)
--- NOTE | 2018-09-06 11:24 | RS.PTINEVL ---
Subjective - Patient information Date of Evaluation: 09/06/18 Date of Arrival on Unit: 09/05/18 Admitted From:: Home Diagnosis: syncope, hypotension, dehydration, weight loss, h/o falls Usual Living Arrangement: Alone Living Arrangement Comments: lives alone, sons live in [place]. Home Environment: House, Stairs (few), Rail Medical History: Hypertension, Arthritis LATEX ALLERGY?: No Medications: see chart Subjective Information/ Patient Comments:: pt states he has had falls recently. pt states that he has had increased difficulty walking and standing to perform ADL's due to dizziness. - Level of function Prior to this admission, the patient could do the following:: Independent ADL's , Independent Ambulation, Perform Head Teller/Cooking, Drive Abilities prior to this admission: however did have h/o falls Current Level of Function: Partially Dependent Current Equipment Used at Home: cane, walker, does not use Interventions - Objective Patient Orientation: Person, Place Current Interventions: IV's, Telemetry Range of Motion - ROM Right Upper Extremity AROM: WFL's Left Upper Extremity AROM: WFL's Right Lower Extremity AROM: WFL's (WFL's with pain with knee flex) Left Lower Extremity AROM: WFL's Muscle Strength - Muscle Strength Right Upper Extremity Strength: Mild Weakness (grossly 4/5) Left Upper Extremity Strength: Mild Weakness (grossly 4/5) Right Lower Extremity Strength: Mild Weakness (hip flex 4-/5, knee flex/ext 4/5 , ankle DF/PF 4/5) Left Lower Extremity Strength: Mild Weakness (hip flex 4/5, knee flex/ext 4/5, ankle DF/PF 4/5) Sensation - Sensation Right Upper Extremity Sensation: Intact/Normal Left Upper Extremity Sensation: Intact/Normal Right Lower Extremity Sensation: Intact/Normal Left Lower Extremity Sensation: Intact/Normal Palpation Palpation Findings: None/Normal Balance - Sitting Balance and Reactions Static Sitting Balance: Good Dynamic Sitting Balance: Fair Sitting Equilibrium Reactions: Delayed Left, Delayed Right Sitting Protective Reactions: Delayed Left, Delayed Right - Standing Balance and Reactions Static Standing Balance: Poor Dynamic Standing Balance: Poor Standing Equilibrium Reactions: Delayed Left, Delayed Right Standing Protective Reactions: Delayed Left, Delayed Right Functional Mobility - Bed Mobility Rolling R/L: Supervision Supine to Sit: Supervision - Transfers Sit to Stand: CGA Stand to Sit: CGA - Safety Awareness Safety Awareness: Good АННА INDEX SCORE: n/a Ambulation - Ambulation Assistive Device Used: Rolling Walker Orthotic/Prosthetic Device: No Distance: 75ft Assistance needed with Ambulation: CGA, 1 person assist, 2 person assist Quality of Ambulation: pt amb with CGA x 1 +1 for IV. pt with flexed posture, decreased step length, requires assist to guide rwx. Gait Deviations: Forward posture, Short stride, Deviates from path Factors Affecting Ambulation: Decreased Balance, Weakness, Dizziness, Decreased Safety, Cognitive Status, Limited Endurance Treatment time - Time with patient Length of Evaluation: 21 Total treatment time: 24 Patient Education - Education Patient Education: Activity Modification, Education of Plan of Care Teaching Recipient: Patient Teaching Methods: Discussion Comments: discussioin regarding POC Assessment - Assessment Problem List:: Decreased level of function, Requires training/education, Decreased safety/Risk of falls, Weakness, Cognitive status limits abilities Rehab Potential: Good Further Therapy Indicated?: Yes Candidate for Swing Bed for Therapy Services?: Feel pt may not be a candidate for swing bed for therapy due to pt is at higher functional level. Feel pt would benefit from home health PT after DC. Evaluation Complexity: HISTORY: Medium, EXAM OF BODY SYSTEMS: Medium, CLINICAL PRESENTATION: Medium, CLINICAL DECISION MAKING: Medium Short Term Goals GOAL #1: pt demonstrate rolling and scooting in bed independently Goal to be met by: 09/09/18 GOAL #2: Transfer sup to/from sit independently Goal to be met by: 09/09/18 GOAL #3: Transfer sit to/from stand SBA to CGA Goal to be met by: 09/09/18 GOAL #4: pt amb with rwx 100ft with CGA with no LOB, no c/o dizziness Goal to be met by: 09/09/18 Geophysical Prospector Goals GOAL #1: pt transfer sit to/from stand SBA to indepedent Goal to be met by: 09/11/18 GOAL #2: pt amb functional household distances with rwx no LOB SBA Goal to be met by: 09/11/18 GOAL #3: Improve dyn stand balance fair+ Goal to be met by: 09/11/18 Plan Plan of Care: Therapeutic EX, Therapeutic Activity Other:: gait training Frequency of Treatment: 1-2 X day, as tolerated Duration of Treatment: 5 days Anticipated Discharge Destination: Home Treatment Diagnosis (ICD 10 Codes): R 26.2 difficulty walking. M62.81 muscle weakness. R 26.81 balance impaired Has the Physician been added for Co-signature?: Yes
[2018-09-06] MEDS ORDERED: DECADRON 4 MG/ML SDV IM STA (13:20)
[2018-09-06] MEDS: CARAFATE PO SCH (16:42)
[2018-09-07] MEDS: PROTONIX PO SCH (05:46)
[2018-09-07] MEDS: CARAFATE PO SCH ×3 (05:46→17:03)
[2018-09-07] MEDS: ZOLOFT PO SCH (08:19)
[2018-09-07] MEDS: FLOMAX PO SCH ×2 (08:19→20:13)
[2018-09-07] MEDS: ELIQUIS PO SCH ×2 (08:19→20:14)
--- NOTE | 2018-09-07 09:04 | PCM.PROG ---
Attending Provider: ATTENDING PROVIDER: Dr. ROBIN VÁZQUEZ DATE OF SERVICE: 09/07/18 SUBJECTIVE: This 88 year old WHITE/ M was hospitalized 09/05/18. The patient is resting comfortably. He is eating well. Hemoglobin is down likely from hemodilution. He is still having some dizziness and weakness. PT has picked him up. Abdominal pain improved. REVIEW OF SYSTEMS: CONSTITUTIONAL: Positive for weakness. No night sweats. No fatigue, malaise, lethargy. No fever or chills. HEENT: Eyes: No visual changes. No eye pain. No eye discharge. ENT: No runny nose. No epistaxis. No sinus pain. No odynophagia. No congestion. RESPIRATORY: No cough, no congestion. No hemoptysis. No shortness of breath. CARDIOVASCULAR: No angina symptoms. No CHF symptoms. No atypical chest pain for CAD. No palpitations. No orthopnea.. GASTROINTESTINAL: No abdominal pain. No nausea or vomiting. No diarrhea or constipation. No hematemesis. No hematochezia. GENITOURINARY: No urgency. No frequency. No dysuria. No hematuria. No obstructive symptoms. No discharge. No pain. No significant abnormal bleeding. MUSCULOSKELETAL: No musculoskeletal pain; no joint swelling. NEUROLOGICAL: Awake, alert, confusion. No headache. No neck pain. No syncope. No seizures. No dizziness. PSYCHIATRIC: Not anxious. No depression. No suicidal thoughts. No homicidal thoughts. SKIN: No rash. No lesions. No wounds. ENDOCRINE: No unexplained weight loss. No weight gain. HEMATOLOGIC/LYMPHATIC: No anemia. No purpura. No petechiae. No prolonged or excessive bleeding. No palpable lymph nodes. PHYSICAL EXAMINATION: GENERAL: The patient is awake, alert sitting in chair in no distress. VITAL SIGNS: Temperature 97.6 F, Pulse 65, Respiratory Rate 18, BP 130/58, Pulse Ox 98% HEENT: Head normocephalic, atraumatic. Eyes: Extraocular muscles are intact. Pupils are equal, round and reactive to light and accommodation. Ears: No lesions. Nose appeared normal. Throat: No exudate or erythema. NECK: Supple. No JVD, no carotid bruit. No lymphadenopathy or thyromegaly. LUNGS: Diminished breath sounds. Clear to auscultation. Percussion note normal. Chest symmetrical. HEART: Small pericardial rub, irregular heart rate. S1, S2, no S3. No murmurs. No cyanosis or clubbing. No ascites. Pulses: Dorsalis pedis and posterior tibial pulses +1 to +2 both sides. ABDOMEN: Soft. Non-tender. Bowel sounds active. No CVA tenderness. No mass felt. EXTREMITIES: No edema. Full range of motion of all extremities, equal. NEUROLOGIC: No focal deficit. Cranial nerves II through XII are grossly intact. No headache, no double vision or headache. SKIN: Warm and dry. Intact. Turgor-normal. LYMPHATIC: No palpable lymph nodes/no lymphedema. MUSCULOSKELETAL: Normal joints with no swelling. Muscle tone is normal. LAB REVIEW: 09/07/18 05:10 09/07/18 05:10 09/07/18 05:10: Sodium 137.8, Potassium 4.24, Chloride 105.6, Carbon Dioxide 26.2, Anion Gap 10.24, BUN 19.3, Creatinine 1.23 H, Estimated GFR (MDRD) 56.00, BUN/Creatinine Ratio 15.69, Glucose 141.9 H, Calcium 8.51, Total Bilirubin 0.48 , AST 79.1 H D, ALT 243.6 H D, Alkaline Phosphatase 113.1, Total Protein 6.02 L , Albumin 3.38 L, Globulin 2.64, Albumin/Globulin Ratio 1.28 09/07/18 05:10: WBC 5.53, RBC 2.98 L, Hgb 8.7 L, Hct 28.0 L, MCV 94.0, MCH 29.2 , MCHC 31.1 L, RDW Coeff of Елена 12.6, Plt Count 273, Immature Gran % (Auto) 0.7 , Neut % (Auto) 72.4, Lymph % (Auto) 18.8, [place] % (Auto) 5.8, Eos % (Auto) 1.8, Baso % (Auto) 0.5, Immature Gran # (Auto) 0.0, Neut # (Auto) 4.0, Lymph # (Auto ) 1.0, [place] # (Auto) 0.3 L, Eos # (Auto) 0.1, Baso # (Auto) 0.0 09/05/18 16:28: DUGLAS Screen Negative ASSESSMENT: 1. Pericardial effusion with pericarditis likely from previous viral infection. 2. Elevated liver enzymes likely from previous viral infection. 3. Anemia. 4. Dizziness. 5. Intermittent confusion. 6. Atrial fibrillation. PLAN: 1. PT/OT 2. D/C fluids 3. Viral respiratory panel 4. Zoloft 50 mg daily The patient was seen and examined with the nurse practitioner. Plan and coordination of the patient's care discussed in the presence of Rock Picker and nurse. CONDITION: Stable SCRIBED BY: ALIA GARCIA Ornamental Painter scribed while in presence of service performed by Dr. ROBIN VÁZQUEZ on 09/07/18 ([id number])
--- NOTE | 2018-09-07 14:54 | HP ---
DATE OF SERVICE: 09/05/18 REASON FOR HOSPITALIZATION/HISTORY OF PRESENT ILLNESS: 88 year old white male passed out day before yesterday in the kitchen. He felt himself going down, knees buckled but he did not hit his head. He came to sense he was on the floor. He felt weak. No nausea or vomiting. This AM feeling better but after shower felt weak. Abdomen bloated/something there that is not supposed to be there i.e. pressure. PAST MEDICAL HISTORY: Syncope Hypotension Anemia Atrial fibrillation DJD spine History of hypertension Diabetes Mellitus type 2 BPH Chronic kidney disease stage 3 Hyperglycemia PAST SURGICAL HISTORY: None REVIEW OF SYSTEMS: CONSTITUTIONAL: No fever, Fatigue. HEENT: No sinus drainage, no sore throat. RESPIRATORY: No cough, no congestion. CARDIOVASCULAR: No atypical chest pain for coronary artery disease. No angina , CHF symptoms, palpitations or shortness of breath. GASTROINTESTINAL: No melena or abdominal pain. No GERD. GENITOURINARY: No hematuria, no prostatism, no polyuria. RETAIL ACCOUNT EXECUTIVE: No blackout, Dizziness, no headache, no double vision. MUSCULOSKELETAL: Osteoarthritis pain, no joint swelling. ENDOCRINE: Weight loss; 8 pounds in 2 weeks. Appetite not good, no weight gain. SKIN: Not dry, no rash. PSYCHIATRIC: Anxious, no depression, no suicidal thoughts, no homicidal thoughts. SOCIAL HISTORY: Marital Status: . Alcohol Usage: No. Tobacco Usage: No. FAMILY HISTORY: Father Mother Brother 1 Sister 2 half sisters MEDICATIONS: Bisoprolol fumarate 5mg PO twice a day Losartan 50mg PO daily Protonix 40mg PO daily Xanax 0.5mg Po daily Eye vitamins and Multivitamin PO daily Flomax 0.4mg PO daily Aspirin 81mg PO daily Crestor 5mg Po daily Ferrous sulfate PO daily Eliquis 5mg PO daily ALLERGIES: Levaquin PHYSICAL EXAMINATION: V/S: Pulse 88, blood pressure 92/44, temperature 97.8, oxygen saturation 93%. Height 5'8, weight 185.4 and BMI 28.2. GENERAL APPEARANCE: Oriented times three. HEENT: Normal. NECK: No JVP, no bruits. RESPIRATORY: Lungs are clear. CARDIOVASCULAR: S1, S2, no S3, no murmurs. No cyanosis, clubbing. No ascites. GI/ABDOMEN: No tenderness. Bowel sounds are active. EXTREMITIES: edema, pulses +1, equal. RETAIL ACCOUNT EXECUTIVE: Deep tendon reflexes, sensory, motor and gait all normal. RECTAL: 11-11 Dr. Cervantes refused repeat/PROSTATE: 5-14 (3.4). ASSESSMENT: 1. Syncope 2. Hypotension 3. Weight loss 4. Dehydration 5. Abdominal discomfort 6. Restless 7. Ataxia 8. Depression 9. 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 Admit special care 2. Routine Telemetry orders 3. BNP 4. Carotid scan 5. MRI of Brain with contrast 6. CT scan of abdomen and pelvis with contrast 7. T4, TSH and ABG 8. 1000cc D5 1/2 normal saline 8 hours 9. Elevate legs 10.Flomax 0.4mg at HS daily 11.Eliquis 5mg Po twice a day 12.Protonix 40mg PO QAM TIME SPENT: More than 70 minutes. MTDD
[2018-09-08] MEDS: PROTONIX PO SCH (05:54)
[2018-09-08] MEDS: CARAFATE PO SCH ×3 (05:54→16:54)
[2018-09-08] MEDS: ELIQUIS PO SCH ×2 (08:06→20:39)
[2018-09-08] MEDS: FLOMAX PO SCH (08:06)
[2018-09-08] MEDS: ZOLOFT PO SCH (08:06)
[2018-09-08] MEDS ORDERED: DECADRON 4 MG/ML SDV IM STA (11:16)
[2018-09-08] MEDS: BIAXIN PO SCH ×2 (11:59→16:54)
[2018-09-08] MEDS: FLAGYL PO SCH ×2 (11:59→20:38)
[2018-09-08] MEDS: PEPTO-BISMOL CHEW PO SCH ×3 (12:08→20:40)
[2018-09-09] MEDS: CARAFATE PO SCH ×3 (05:39→16:38)
[2018-09-09] MEDS: PROTONIX PO SCH (05:39)
[2018-09-09] MEDS: ELIQUIS PO SCH ×2 (08:45→20:44)
[2018-09-09] MEDS: BIAXIN PO SCH ×2 (08:45→16:40)
[2018-09-09] MEDS: FLOMAX PO SCH ×2 (08:45→20:44)
[2018-09-09] MEDS: FLAGYL PO SCH ×2 (08:45→20:43)
[2018-09-09] MEDS: ZOLOFT PO SCH (08:46)
[2018-09-09] MEDS: PEPTO-BISMOL CHEW PO SCH ×3 (08:50→20:44)
[2018-09-09] MEDS: COREG PO SCH (16:39)
[2018-09-10 05:02] VITALS: BP 132/63; TEMP 97.7
[2018-09-10] MEDS: CARAFATE PO SCH ×2 (05:39→10:29)
[2018-09-10] MEDS: PROTONIX PO SCH (05:40)
[2018-09-10] MEDS: BIAXIN PO SCH (08:31)
[2018-09-10] MEDS: PEPTO-BISMOL CHEW PO SCH (08:32)
[2018-09-10] MEDS: ZOLOFT PO SCH (08:32)
[2018-09-10] MEDS: FLOMAX PO SCH (08:32)
[2018-09-10] MEDS: FLAGYL PO SCH (08:32)
[2018-09-10] MEDS: COREG PO SCH (08:32)
[2018-09-10] MEDS: ELIQUIS PO SCH (08:33)
--- NOTE | 2018-09-10 09:15 | PCM.PROG ---
Attending Provider: ATTENDING PROVIDER: Dr. ROBIN VÁZQUEZ This patient is seen with Shiloh Ortiz, Nurse Practitioner. DATE OF SERVICE: 09/10/18 SUBJECTIVE: This 88 year old WHITE/ M was hospitalized 09/05/18. The patient is sitting in chair resting comfortably. He started treatment for H. Pylori over weekend. Abdominal pain seems improved. He was tachycardic over the weekend but Coreg seems to have resolved the issue. The patient still complains of weakness. REVIEW OF SYSTEMS: CONSTITUTIONAL: Positive for weakness. No night sweats. No fatigue, malaise, lethargy. No fever or chills. HEENT: Eyes: No visual changes. No eye pain. No eye discharge. ENT: No runny nose. No epistaxis. No sinus pain. No odynophagia. No congestion. RESPIRATORY: No cough, no congestion. No hemoptysis. No shortness of breath. CARDIOVASCULAR: No angina symptoms. No CHF symptoms. No atypical chest pain for CAD. No palpitations. No orthopnea.. GASTROINTESTINAL: No abdominal pain. No nausea or vomiting. No diarrhea or constipation. No hematemesis. No hematochezia. GENITOURINARY: No urgency. No frequency. No dysuria. No hematuria. No obstructive symptoms. No discharge. No pain. No significant abnormal bleeding. MUSCULOSKELETAL: No musculoskeletal pain; no joint swelling. NEUROLOGICAL: Awake, alert, oriented to time, place and person. No headache. No neck pain. No syncope. No seizures. Positive for dizziness. PSYCHIATRIC: Not anxious. No depression. No suicidal thoughts. No homicidal thoughts. SKIN: No rash. No lesions. No wounds. ENDOCRINE: No unexplained weight loss. No weight gain. HEMATOLOGIC/LYMPHATIC: No anemia. No purpura. No petechiae. No prolonged or excessive bleeding. No palpable lymph nodes. PHYSICAL EXAMINATION: GENERAL: The patient is awake, alert and oriented, sitting in chair in no distress. VITAL SIGNS: Temperature 97.7 F, Pulse 69, Respiratory Rate 18, BP 132/63, Pulse Ox 97% HEENT: Head normocephalic, atraumatic. Eyes: Extraocular muscles are intact. Pupils are equal, round and reactive to light and accommodation. Ears: No lesions. Nose appeared normal. Throat: No exudate or erythema. NECK: Supple. No JVD, no carotid bruit. No lymphadenopathy or thyromegaly. LUNGS: Diminished breath sounds. Clear to auscultation. Percussion note normal. Chest symmetrical. HEART: S1, S2, no S3. No murmurs. No cyanosis or clubbing. No ascites. Pulses: Dorsalis pedis and posterior tibial pulses +1 to +2 both sides. ABDOMEN: Soft. Non-tender. Bowel sounds active. No CVA tenderness. No mass felt. EXTREMITIES: No edema. Full range of motion of all extremities, equal. NEUROLOGIC: No focal deficit. Cranial nerves II through XII are grossly intact. No headache, no double vision or headache. SKIN: Not dry. Intact. Turgor-normal. LYMPHATIC: No palpable lymph nodes/no lymphedema. MUSCULOSKELETAL: Normal joints with no swelling. Muscle tone is normal. LAB REVIEW: 09/10/18 04:53 09/10/18 04:53 09/10/18 04:53: Sodium 138.2, Potassium 3.75, Chloride 102.6, Carbon Dioxide 26.7, Anion Gap 12.65, BUN 23.7 H, Creatinine 1.23 H, Estimated GFR (MDRD) 56.00 , BUN/Creatinine Ratio 19.26, Glucose 112.2 H, Calcium 8.68, Total Bilirubin 0.44, AST 49.7, ALT 171.7 H, Alkaline Phosphatase 115.3, Total Protein 6.30, Albumin 3.58, Globulin 2.72, Albumin/Globulin Ratio 1.31 09/10/18 04:53: WBC 6.23, RBC 3.15 L, Hgb 9.1 L, Hct 28.9 L, MCV 91.7, MCH 28.9 , MCHC 31.5 L, RDW Coeff of Елена 13.1, Plt Count 319, Immature Gran % (Auto) 0.5 , Neut % (Auto) 56.8, Lymph % (Auto) 31.8, [place] % (Auto) 5.6, Eos % (Auto) 4.3, Baso % (Auto) 1.0, Immature Gran # (Auto) 0.0, Neut # (Auto) 3.5, Lymph # (Auto ) 2.0, [place] # (Auto) 0.4, Eos # (Auto) 0.3, Baso # (Auto) 0.1 ASSESSMENT: 1. H. Pylori 2. Acute on chronic kidney disease 3. Weight loss 4. Generalized weakness 5. Atrial fibrillation PLAN: 1. Will continue treatment for H. Pylori. 2. Will have PT reevaluate the patient. Plan and coordination of the patient's care discussed in the presence of English Composition Instructor and nurse. CONDITION: Stable SCRIBED BY: ALIA GARCIA [employer] Freight Car Cleaner scribed while in presence of service performed by Dr. Vázquez/Shiloh Ortiz APRN on 09/10/18 ([id number])
--- NOTE | 2018-09-10 09:37 | ECHO2D ---
Date of Exam: 09/06/2018 Ordering Physician: ROBIN VÁZQUEZ MD Room #: VAU-3 Reason for Echo: PERICARDIAL EFFUSION, SYNCOPE, HYPOTENSION M-Mode Normal Adult Results LV Dimensions Normal Adult Results AoV Opening excursions >1.6 >1.6 LVEDD-base- 3.5-5.8 6.0 Ao root dimensions 2.0-3.7 4.0 LVESD-base- 3.1-4.6 L. Atrium dimensions 1.9-3.8 4.2 Post. Wall thickness 0.8-1.1 1.2 IV septum (thickness) 0.7-1.2 1.4 Post. Wall excursion 0.72-1.3 NORMAL Septal motion 0.2 Systolic motion R. Ventricular cavity 1.5-2.0 NORMAL LVEF 60% 60% Paradoxical septal wall motion NORMAL 2-D : MILDLY DILATED LEFT ATRIAL CAVITY / NORMAL LEFT VENTRICULAR CAVITY. MILD TO MODERATE PERICARDIAL EFFUSION. AKINETIC TO HYPOKINETIC SEPTAL WALL. NO THROMBUS. NORMAL VALVES M-MODE: MV: CALCIFIC MITRAL VALVE ANULUS AV: NORMAL TV: NORMAL PV: NORMAL CHAMBER SIZE: ENLARGED LEFT ATRIAL CAVITY WALL MOTION: HYPOKINETIC SEPTAL WALL PERICARDIUM: MILD TO MODERATE PERICARDIAL EFFUSION INTERPRETATION: 1. 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 MILD TO MODERATE PERICARDIAL EFFUSION 3. NORMAL LEFT VENTRICULAR CONTRACTILITY 4. CALCIFIC MITRAL VALVE ANNULUS (MILD) MTDD
--- NOTE | 2018-09-10 10:50 | PN ---
DATE OF SERVICE: 09/05/18 SUBJECTIVE: The patient was seen and examined this morning. 88-year-old white male hospitalized with syncopal episode, hypotension, weight loss, abnormal liver profile. The patient's condition has steadily improved. He says he is feeling a lot better than what he felt like on admission. Appetite has improved. This morning he ate all his breakfast. He is complaining of hunger type of epigastric pain. No vomiting. No nausea. PHYSICAL EXAMINATION: GENERAL: The patient is oriented to time, place and person. VITAL SIGNS: Temperature 8.5, pulse 70, respiratory rate 15, BP 130/80. HEENT: Head normocephalic, atraumatic. Eyes: Extraocular muscles are intact. Pupils are equal, round and reactive to light and accommodation. Ears: No lesions. Nose appeared normal. Throat: No exudate or erythema. NECK: Supple. No JVD, no carotid bruit. No lymphadenopathy or thyromegaly. LUNGS: Decreased breath sounds but clear to auscultation. Percussion note normal. Chest symmetrical. HEART: S1, S2, no S3. No murmurs. No cyanosis or clubbing. No ascites. Pulses: Dorsalis pedis and posterior tibial pulses +1 to +2 bilaterally. ABDOMEN: Soft. Nontender. Bowel sounds active. No CVA tenderness. No mass felt. EXTREMITIES: No edema. Full range of motion of all extremities, equal. NEUROLOGIC: No focal deficit. Cranial nerves II through XII are grossly intact. No headache, no double vision or headache. SKIN: Intact. Turgor - better. LYMPHATIC: No palpable lymph nodes/no lymphedema. MUSCULOSKELETAL: Normal joints with no swelling. Muscle tone is normal. LABS: Hemoglobin 8.9 which is higher than yesterday. Hematocrit 28. No evidence of active GI bleed. Creatinine 1.2, BUN 16, potassium 3.7. ASSESSMENT: 1. Syncopal episode with no evidence of any cardiac arrhythmias. Carotid arteries not hemodynamically stenosed. No evidence of CHF. 2. Hypotension seems to have resolved. 3. Weight loss and abdominal liver profile seems to be improving. Liver profile done this morning is better than yesterdays. PLAN: 1. Encourage the patient to eat. 2. 1 cc Decadron IM. 3. Will also treat him for H. Pylori. 4. Kaopectate two tablets t.i.d. 5. Discontinue Keflex. 6. Will put him on Biaxin 250 mg twice a day with meals and Flagyl 250 mg twice a day for 7 days. I am afraid to use a higher dose of Biaxin than Flagyl at present time. CONDITION: Stable. TIME SPENT: More than 30 minutes. Plan and coordination of the patient's care discussed in the presence of nurse. TARA
--- NOTE | 2018-09-10 12:54 | PN ---
DATE OF SERVICE: 09/06/18 SUBJECTIVE: The patient is doing well, eating better. He says his appetite has improved. His hydration status has improved. He is more alert. PHYSICAL EXAMINATION: HEENT: Head normocephalic, atraumatic. Eyes: Extraocular muscles are intact. Pupils are equal, round and reactive to light and accommodation. Ears: No lesions. Nose appeared normal. Throat: No exudate or erythema. NECK: Supple. No JVD, no carotid bruit. No lymphadenopathy or thyromegaly. LUNGS: Clear to auscultation. Percussion note normal. Chest symmetrical. HEART: S1, S2, no S3. No murmurs. No cyanosis or clubbing. No ascites. Pulses: Dorsalis pedis and posterior tibial pulses +1 to +2 bilaterally. ABDOMEN: Soft. Nontender. Bowel sounds active. No CVA tenderness. No mass felt. EXTREMITIES: No edema. Full range of motion of all extremities, equal. NEUROLOGIC: No focal deficit. Cranial nerves II through XII are grossly intact. No headache, no double vision or headache. SKIN: Not dry. Intact. Turgor - normal. LYMPHATIC: No palpable lymph nodes/no lymphedema. MUSCULOSKELETAL: Normal joints with no swelling. Muscle tone is normal. The patient's echo showed mild to moderate pericardial effusion. No evidence of tamponade. LV contractility and LV size is normal. The patient is in and out of atrial fibrillation and sinus rhythm. He is on Eliquis. There is no evidence of active GI bleed. So far, all the workup is negative. His sed rate is high as expected. No evidence of any connective tissue disease so far. The patient's abnormal liver profile and pericardial effusion could be part of a viral syndrome. He had symptoms of upper respiratory tract infectin, four to five weeks ago for which he was treated with antibiotics and steroids. Condition stable. The patient was seen and examined with nurse practitioner. The patient does not want intubation or respirator. TIME SPENT: More than 30 minutes. Plan and coordination of the patient's care discussed in the presence of nurse. TARA
--- NOTE | 2018-09-10 13:01 | PN ---
DATE OF SERVICE: 09/07/18 SUBJECTIVE: The patient's condition has improved. The patient's hemoglobin is getting low because of hemodilution. No evidence of fluid overload. His appetite has improved. Liver function is somewhat better. Will order viral profile. The patient is going to be put in the swing bed for physical therapy. TIME SPENT: More than 30 minutes. The patient was seen along with the nurse practitioner. Plan and coordination of the patient's care discussed in the presence of nurse. TARA
--- NOTE | 2018-09-10 13:18 | PN ---
BILLIN09/05/18 ADMISSION DAY LEVEL 5 09/06/18 INTERMEDIATE 09/07/18 INTERMEDIATE 09/08/18 INTERMEDIATE 09/09/18 INTERMEDIATE 09/10/18 DISCHARGE TO [facility]
--- NOTE | 2018-09-12 08:39 | PN ---
DATE OF SERVICE: 09/09/18 SUBJECTIVE: 88-year-old white male hospitalized with syncopal episode, hypotension, weight loss. The patient's condition has steadily improved. He is queasy feeling in the stomach. He is a lot better. The patient is being treated for H. Pylori. His H. Pylori was positive by blood test. REVIEW OF SYSTEMS: CONSTITUTIONAL: No night sweats. No fatigue, malaise, lethargy. No fever or chills. HEENT: Eyes: No visual changes. No eye pain. No eye discharge. ENT: No runny nose. No epistaxis. No sinus pain. No sore throat. No odynophagia. No congestion. RESPIRATORY: No cough, no congestion. No hemoptysis. No shortness of breath. CARDIOVASCULAR: No angina symptoms. No CHF symptoms. No atypical chest pain for CAD. No palpitations. No PND. No orthopnea. GASTROINTESTINAL: Appetite has improved. No abdominal pain. No nausea or vomiting. No diarrhea or constipation. No hematemesis. No hematochezia. GENITOURINARY: No urgency. No frequency. No dysuria. No hematuria. No obstructive symptoms. No discharge. No pain. No significant abnormal bleeding. MUSCULOSKELETAL: No musculoskeletal pain; no joint swelling. NEUROLOGICAL: No headache. No neck pain. No syncope. No seizures. No dizziness. PSYCHIATRIC: Not anxious. No depression. No suicidal thoughts. No homicidal thoughts. SKIN: No rash. No lesions. No wounds. ENDOCRINE: No unexplained weight loss. No weight gain. HEMATOLOGIC/LYMPHATIC: No anemia. No purpura. No petechiae. No prolonged or excessive bleeding. No palpable lymph nodes. PHYSICAL EXAMINATION: VITAL SIGNS: Temperature 97.6, pulse 90, respiratory rate 18, blood pressure 140/65, pulse ox 97%. HEENT: Head normocephalic, atraumatic. Eyes: Extraocular muscles are intact. Pupils are equal, round and reactive to light and accommodation. Ears: No lesions. Nose appeared normal. Throat: No exudate or erythema. NECK: Supple. No JVD, no carotid bruit. No lymphadenopathy or thyromegaly. LUNGS: Decreased breath sounds but clear to auscultation. Percussion note normal. Chest symmetrical. HEART: S1, S2, no S3. No murmurs. No cyanosis or clubbing. No ascites. Pulses: Dorsalis pedis and posterior tibial pulses +1 to +2 bilaterally. ABDOMEN: Soft. Nontender. Bowel sounds active. No CVA tenderness. No mass felt. EXTREMITIES: No edema. Full range of motion of all extremities, equal. NEUROLOGIC: No focal deficit. Cranial nerves II through XII are grossly intact. No headache, no double vision or headache. SKIN: Not dry. Intact. Turgor - normal. LYMPHATIC: No palpable lymph nodes/no lymphedema. MUSCULOSKELETAL: Normal joints with no swelling. Muscle tone is normal. LABS: Hemoglobin 9, hematocrit 27, WBC 6,500, normal differential. Creatinine 1.1, BUN 19, potassium 3.8. T4, TSH negative. ASSESSMENT: 1. Syncope/hypotension likely from dehydration, could be from viral syndrome. Viral syndrome has produced bronchitis type of symptoms for the past four to six weeks and pericardial effusion with abnormal liver profile which seems to be improving. 2. H. Pylori could be contributing towards queasy feeling in the stomach but the patient also has a small gallstone which doesn't seem to be symptomatic. PLAN: All discussed with the patient. He is happy with the progress and doesn't want any further evaluation or referral for any other medical/surgical problems that he may have. TIME SPENT: More than 30 minutes. Plan and coordination of the patient's care discussed in the presence of nurse. TARA
--- NOTE | 2018-09-12 14:00 | DS ---
DATE OF SERVICE: 09/10/18 (DISCHARGED FROM ACUTE) FINAL DIAGNOSIS: 1. DEHYDRATION - IMPROVING 2. ABDOMINAL PAIN - IMPROVING 3. HYPOTENSION - IMPROVED 4. WEIGHT LOSS 5. GENERALIZED WEAKNESS 6. ANEMIA 7. ACUTE ON CHRONIC RENAL FAILURE 8. H. PYLORI 9. DEMENTIA 10. ATRIAL FIBRILLATION, RATE CONTROLLED DISCHARGE INSTRUCTIONS: The patient is admitted to swing bed. MEDICATIONS AT DISCHARGE: Alprazolam 0.5 mg p.o. daily p.r.n. Tamsulosin 0.4 mg p.o. daily Rosuvastatin 5 mg p.o. bedtime Multivitamin one tab p.o. daily Ferrous Sulfate 648 mg p.o. daily Aspirin 81 mg p.o. daily Losartan 50 mg p.o. daily Pantoprazole 40 mg p.o. q.d a.c. Bisprolol 5 mg p.o. b.i.d. Neomycin/Polymyxin 10 mL OT as directed Cephalexin 500 mg p.o. b.i.d. Apixaban 5 mg p.o. b.i.d. DIET INSTRUCTIONS: Heart Healthy diet ACTIVITY: PT/OT, as patient tolerates. SMOKING: N/A DISEASE SPECIFIC EDUCATION: Transfer to swing bed for physical and occupational therapy, continuation of antibiotics. HOSPITAL COURSE: This is an 88-year-old white male, who is a direct admit from our office. He had for several days been experiencing abdominal pain and nausea at home. He has lost approximately 10 lbs over the past couple of weeks. He describes the pain as radiating around his midline. No vomiting or diarrhea. He has been dizzy and unsteady. We admitted him. Kidney function was elevated showing dehydration. We started him on IV fluids, NS at 75 cc/hr. CT of the abdomen showed no acute process. Amylase and lipase were both normal. He did continue to have pain, described it worse after eating. We started him on Protonix 40 mg IV then transitioned to 40 mg p.o. b.i.d. as well as put him on Carafate 1 gm t.i.d. While in the hospital, he had days where symptoms improved and then days where they worsened. Over the weekend we tested him for H. Pylori which was positive and started treatment with Biaxin and Flagyl due to allergy to Penicillin. This morning, he states that his pain is improving but he still feels very weak. He has had trouble getting up by himself. He had previously been living at home. I do believe he is a swing bed candidate. Will discharge him and place him in swing bed for further continuation of antibiotics as well as for physical and occupational therapy. LABS: WBC 6.23, RBC 3.15, Hgb 9.1, Hct 28.9, platelet count 319. Sodium 138.2, potassium 3.75, chloride 102.6, carbon dioxide 26.7, BUN 23.7, creatinine 1.23, glucose 112.2, AST 49.7, ALT 171.7, alkaline phosphatase 115.3. TIME SPENT: More than 60 minutes. MTDD
== END 2018-09-10 11:34 | disposition swing bed (61) | DRG 641 ==
LOC: SCU 11:26
PROVIDERS: ADMIT Internal Medicine; ATTEND Internal Medicine
DX: E86.0 Dehydration (principal); I31.3 Pericardial effusion (noninflammatory); I95.9 Hypotension, unspecified; R63.4 Abnormal weight loss; R10.9 Unspecified abdominal pain; R45.1 Restlessness and agitation; R27.0 Ataxia, unspecified; F32.9 Major depressive disorder, single episode, unspecified; R53.83 Other fatigue; D64.9 Anemia, unspecified; J32.9 Chronic sinusitis, unspecified; I48.91 Unspecified atrial fibrillation; Z79.01 Long term (current) use of anticoagulants; M47.9 Spondylosis, unspecified; M54.31 Sciatica, right side; I10 Essential (primary) hypertension; E11.65 Type 2 diabetes mellitus with hyperglycemia; N18.3 Chronic kidney disease, stage 3 (moderate); R41.0 Disorientation, unspecified
CPT/HCPCS: 36415; 80053; 80074; 81001; 82150; 82378; 82550; 82803; 83690; 84156; 84166; 84439; 84443; 84484; 85025; 85651; 86038; 86140; 86325; 86677; 93005; 93010; 97802

== ENCOUNTER 2018-09-10 11:39 | Inpatient (IN) ==
[2018-09-10] MEDS ORDERED: NITROSTAT SL PRN (12:19)
[2018-09-10] MEDS ORDERED: VISTARIL INJ IM PRN (12:20)
[2018-09-10] MEDS ORDERED: TYLENOL PO PRN (12:25)
--- NOTE | 2018-09-10 14:23 | RS.OTINEVL ---
Subjective - Patient information Date of Evaluation: 09/10/18 Date of Arrival on Unit: 09/10/18 Admitted From:: Home Diagnosis: syncope, falls, decreased safety awareness PRECAUTIONS: a high risk for falls, syncope, impaired safety. Usual Living Arrangement: Alone Living Arrangement Comments: lives alone, sons live in [facility] and [facility]. Home Environment: House, Stairs (few) Medical History: Hypertension, Diabetes, Arthritis Medical History Comments:: atrial fib, polyarthritis, Mac. Deg. , Subjective Information/ Patient Comments:: Pt reports he drives when he is not dizzy. 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 Syncope, Hypotension Current Equipment Used at Home: cane and walker which he does not think he needs to use. Pain Assessment - Pain Pain Score: 0 Interventions - Objective Patient Orientation: Person, Time Current Interventions: Telemetry Observation: Pt could not give me the name of the facility. Pt is good at trying to cover up impairments. Interventions - ROM Right Upper Extremity AROM: WFL's Left Upper Extremity AROM: WFL's - Strength Right Upper Extremity Strength: Mild Weakness Left Upper Extremity Strength: Mild Weakness - Sensation Right Upper Extremity Sensation: Intact/Normal Left Upper Extremity Sensation: Intact/Normal Balance - Sitting Balance Static Sitting Balance: Good Dynamic Sitting Balance: Good - Standing Balance Static Standing Balance: Poor Dynamic Standing Balance: Poor ADL Skills - Self Feeding Self Feeding: Independent - Grooming Grooming: Min Assist, Verbal Cues - Toilet Management Toileting Management: Min Assist, Verbal Cues Functional Mobility - Bed Mobility Rolling R/L: Not Tested Scooting: Not Tested Supine to Sit: Not Tested Sit to Supine: Not Tested - Transfers Sit to Stand: CGA - Ambulation Weight Bearing Status: FWB Assistive Device Used: Rolling Walker Assistance needed with Ambulation: CGA - Safety Awareness Safety Awareness: Fair АННА INDEX SCORE: 76 Additional Treatment Performed - Additional units charged ADL: 17 - Time with patient Length of Evaluation: 18 Total treatment time: 35 Activities Do you enjoy playing games?: Yes Would you be interested in leaving your room for activities?: Yes Would you enjoy group activities?: Yes Do you have difficulty with your vision?: Yes Patient Interests:: Visiting/Socializing Patient Education Patient Education: Education of diagnosis Teaching Recipient: Patient Teaching Methods: Discussion Assessment Problem List:: Decreased level of function, Requires training/education, Decreased safety/Risk of falls, Weakness Rehab Potential: Good Further Therapy Indicated?: Yes Evaluation Complexity: HISTORY: Medium, EXAM OF BODY SYSTEMS: Medium, CLINICAL DECISION MAKING: Medium Plan Plan of Care: Therapeutic EX, Neuromuscular Re-Educ, Therapeutic Activity, Self- Care/Home Management Frequency of Treatment: 1-2 X day, as tolerated Duration of Treatment: 2 Weeks Anticipated Discharge Destination: Home Treatment Diagnosis (ICD 10 Codes): Muscle weakness M62.81, Z74.1 Need for assistance with personal care. Has the Physician been added for Co-signature?: Yes
[2018-09-10] MEDS: PEPTO-BISMOL CHEW PO SCH ×2 (15:54→20:58)
--- NOTE | 2018-09-10 16:04 | RS.PTINEVL ---
Subjective - Patient information Date of Evaluation: 09/10/18 Date of Arrival on Unit: 09/10/18 Admitted From:: In-House Transfer Diagnosis: Decline in functional status, History of falls, syncope Usual Living Arrangement: Alone Living Arrangement Comments: lives alone, sons live in [facility] and [facility]. Home Environment: Mobile Home, Stairs (few) Medical History: Hypertension, Diabetes, Arthritis Medical History Comments:: atrial fib, polyarthritis, Mac. Deg. , Subjective Information/ Patient Comments:: Mr. Beyer states he probably will not use anything to walk with when he goes home. States he does not have space to use a rolling walker because he lives in a mobile home. States he has not had anymore dizziness lately. States he has a cane at home, but he does not know where it is. Reports pain in the right knee during ambulation. - Level of function Prior to this admission, the patient could do the following:: Independent ADL's , Independent Ambulation, Perform [employer]/Cooking, Drive Current Equipment Used at Home: cane and walker which he does not think he needs to use. Interventions - Objective Patient Orientation: Person, Place, Situation Range of Motion - ROM Right Upper Extremity AROM: WFL's Left Upper Extremity AROM: WFL's Right Lower Extremity AROM: WFL's Left Lower Extremity AROM: WFL's Muscle Strength - Muscle Strength Right Lower Extremity Strength: Mild Weakness Left Lower Extremity Strength: Mild Weakness Comments:: bilateral hip flexion 4/5, quads/HS 4/5, ankles 4/5 throughout. Sensation - Sensation Comments: Reports intact sensation of both feet. Balance - Sitting Balance and Reactions Static Sitting Balance: Good Dynamic Sitting Balance: Good Sitting Protective Reactions: Delayed Left, Delayed Right - Standing Balance and Reactions Static Standing Balance: Fair (-) Dynamic Standing Balance: Poor (+) Standing Equilibrium Reactions: Delayed Left, Delayed Right Standing Protective Reactions: Delayed Left, Delayed Right - Comments Balance Assessment Comments: Patient demonstrates anteriorly displaced balance with immediate standing. Functional Mobility - Bed Mobility Comments:: Patient presents sitting up in chair at bedside. - Transfers Sit to Stand: Supervision, 1 person assist, Verbal Cues, Tactile Cues Stand to Sit: Supervision, 1 person assist, Verbal Cues, Tactile Cues Stand Pivot Transfers: Supervision, CGA, Min Assist, 1 person assist - Safety Awareness Safety Awareness: Fair АННА INDEX SCORE: 76 Ambulation - Ambulation Weight Bearing Status: FWB Assistive Device Used: No Assistive Device Orthotic/Prosthetic Device: No Distance: 100 feet Assistance needed with Ambulation: CGA, Min Assist, 1 person assist, Verbal Cues , Tactile Cues Gait Deviations: Narrow Based gait, Shuffling gait, Forward posture, Displaced COG (anteriorly displaced), Deviates from path (moderate deviation) Ambulation Comments: Ambulated first with rolling walker. Much steadier gait demonstrated with walker. Once patient admitted that he would not be using a walker at home, we walked without an assistive device to assess his ability. Mr. Beyer demonstrates inconsistent foot clearance on the left LE during swing phase and decreased stance phase on the right LE (due to right knee pain per patient). He also demonstrates anteriorly displaced balance with gait. He needs tactile assistance to slow down as forward momentum causes him to go too fast. Factors Affecting Ambulation: Decreased Balance, Pain, Decreased Safety, Cognitive Status Treatment time - Time with patient Length of Evaluation: 18 mins Total treatment time: 18 Patient Education - Education Patient Education: Education of diagnosis, Home Safety, Activity Modification Teaching Recipient: Patient Teaching Methods: Discussion, Demonstration Assessment - Assessment Problem List:: Decreased level of function, Requires training/education, Decreased safety/Risk of falls Rehab Potential: Good Further Therapy Indicated?: Yes Comments: Mr. Beyer admits that he will not use an assistive device once he goes home. He demonstrates to be a high fall risk and will benefit from safety education and balance/strengthening activities to reduce his fall risk. Evaluation Complexity: HISTORY: Medium, EXAM OF BODY SYSTEMS: Medium, CLINICAL PRESENTATION: Medium, CLINICAL DECISION MAKING: Medium Short Term Goals GOAL #1: Pt independent in all bed mobility. Goal to be met by: 09/14/18 GOAL #2: Pt to transfer sit<>stand with good safety. Goal to be met by: 09/14/18 GOAL #3: Static standing balance improved to Fair Goal to be met by: 09/14/18 GOAL #4: Pt amb w/o Asst device, 100ft with CGA with good base of support. Goal to be met by: 09/14/18 Retirement Goals GOAL #1: Pt to transfer sit to/from stand SBA to indepedent w/ good safety. Goal to be met by: 09/17/18 GOAL #2: Pt will ambulate household distances w/o assit device, I, with good safety. Goal to be met by: 09/17/18 GOAL #3: Improve dyn stand balance fair+ Goal to be met by: 09/17/18 Plan Plan of Care: Therapeutic EX, Neuromuscular Re-Educ, Therapeutic Activity, Self- Care/Home Management Frequency of Treatment: 1-2 X day, as tolerated Duration of Treatment: 1 Week Anticipated Discharge Destination: Home Treatment Diagnosis (ICD 10 Codes): R26.2 difficulty walking, R26.81 Balance impaired/unsteady, Z91.81 At risk for falls. Has the Physician been added for Co-signature?: Yes
[2018-09-10] MEDS ORDERED: BIAXIN PO SCH (17:30)
[2018-09-10] MEDS: CARAFATE PO SCH (18:22)
[2018-09-10] MEDS: COREG PO SCH (18:22)
[2018-09-10] MEDS: BIAXIN PO SCH (18:23)
[2018-09-10] MEDS: FLAGYL PO SCH (20:58)
[2018-09-10] MEDS: FLOMAX PO SCH (20:58)
[2018-09-10] MEDS: ELIQUIS PO SCH (20:58)
[2018-09-10] MEDS ORDERED: NON-FORMULARY MEDICATION (Apixaban [Eliquis] 5 MG) PO SCH (21:00)
[2018-09-11] MEDS: CARAFATE PO SCH ×3 (05:47→16:35)
[2018-09-11] MEDS: PROTONIX PO SCH (05:47)
[2018-09-11] MEDS: PEPTO-BISMOL CHEW PO SCH ×3 (09:19→21:23)
[2018-09-11] MEDS: ELIQUIS PO SCH ×2 (09:19→21:20)
[2018-09-11] MEDS: ZOLOFT PO SCH (09:19)
[2018-09-11] MEDS: COREG PO SCH ×2 (09:19→16:35)
[2018-09-11] MEDS: FLOMAX PO SCH ×2 (09:20→21:20)
[2018-09-11] MEDS: BIAXIN PO SCH ×2 (09:20→16:35)
[2018-09-11] MEDS: K-DUR PO SCH (09:20)
[2018-09-11] MEDS: FLAGYL PO SCH ×2 (09:20→21:20)
--- NOTE | 2018-09-11 12:59 | HP ---
DATE OF SERVICE: 09/10/18 - SWING BED HISTORY OF PRESENT ILLNESS: This is an 88-year-old white male who was admitted to acute care with weight loss, hypotension, dehydration, syncope, abdominal pain. He had been very weak, lost approximately 10 lbs. While in Special Care Unit he was positive for H. Pylori. We have since started treatment. Abdominal pain seems to be improving as well as appetite. He did develop some tachycardia. He has known atrial fib. We started him on Coreg. Tachycardia seems to be under control but he does have continued persistent weakness and inability to perform all of his ADLs so he is going to be admitted for physical and occupational therapy. PAST MEDICAL HISTORY: Generalized weakness Positive H. Pylori Weight loss Dehydration - improved Chronic kidney disease Anemia Syncope Hypotension Anemia Atrial fibrillation DJD spine History of hypertension Diabetes Mellitus type 2 BPH Chronic kidney disease stage 3 Hyperglycemia PAST SURGICAL HISTORY: None REVIEW OF SYSTEMS: CONSTITUTIONAL: Positive for generalized weakness, fatigue. No night sweats. No malaise, lethargy. No fever or chills. HEENT: Eyes: No visual changes. No eye pain. No eye discharge. ENT: No runny nose. No epistaxis. No sinus pain. No sore throat. No odynophagia. No ear pain. No congestion. RESPIRATORY: No cough, no congestion. No hemoptysis. No shortness of breath. CARDIOVASCULAR: No angina symptoms. No CHF symptoms. No atypical chest pain for CAD. No palpitations. No PND. No orthopnea. GASTROINTESTINAL: No abdominal pain. No nausea or vomiting. No diarrhea or constipation. No hematemesis. No hematochezia. GENITOURINARY: No urgency. No frequency. No dysuria. No hematuria. No obstructive symptoms. No discharge. No pain. No significant abnormal bleeding. MUSCULOSKELETAL: No musculoskeletal pain. No joint swelling. No arthritis. NEUROLOGICAL: No headache. No neck pain. No syncope. No seizures. No dizziness. PSYCHIATRIC: Not anxious. No depression. No suicidal thoughts. No homicidal thoughts. SKIN: No rash. No lesions. No wounds. ENDOCRINE: No unexplained weight loss. No weight gain. HEMATOLOGIC/LYMPHATIC: No anemia. No purpura. No petechiae. No prolonged or excessive bleeding. No palpable lymph nodes. PERSONAL/FAMILY/SOCIAL HISTORY: He was alone, is . No alcohol or ilicit drug use. MEDICATIONS: Nitroglycerin 0.4 mg SL q.5 min times three doses p.r.n. Hydroxyzine 25 mg IM q.4h p.r.n. Acetaminophen 650 mg p.o. q.4h p.r.n. Bismuth Subsalicylate 524 mg p.o. t.i.d. Carafate 1 gm p.o. t.i.d. a.c. Carvedilol 6.25 mg p.o. b.i.d. with meal Clarithyromycin 250 mg p.o. b.i.d. with meal Tamsulosin 0.4 mg p.o. b.i.d. Metronidazole 250 mg p.o. q.12h Apixaban 5 mg p.o. b.i.d. Pantoprazole 40 mg p.o. q.d a.c. Sertraline 50 mg p.o. daily K-Dur 20 mEq p.o. daily with meal ALLERGIES: PENICILLINS, LEVOFLOXACIN PHYSICAL EXAMINATION: GENERAL: Alert, oriented to person and place but not time. VITAL SIGNS: Temperature 97.7, heart rate 69, respirations 18, blood pressure 132/63, pulse ox 97% on room air. HEENT: Head normocephalic, atraumatic. Eyes: Extraocular muscles are intact. Pupils are equal, round and reactive to light and accommodation. Ears: No lesions. Nose appeared normal. Throat: No exudate or erythema. NECK: Supple. No JVD, no carotid bruit. No lymphadenopathy or thyromegaly. LUNGS: Diminished breath sounds. Clear to auscultation. Percussion note normal. Chest symmetrical. HEART: Irregular heart rate. S1, S2, no S3. No murmurs. No cyanosis or clubbing. No ascites. Pulses: Dorsalis pedis and posterior tibial pulses +1 to +2 bilaterally. ABDOMEN: Soft. Nontender. Bowel sounds active. No CVA tenderness. No mass felt. EXTREMITIES: No leg edema. Full range of motion of all extremities, equal. NEUROLOGIC: No focal deficit. Cranial nerves II through XII are grossly intact. No headache, no double vision or headache. SKIN: Not dry. Intact. Turgor - normal. LYMPHATIC: No palpable lymph nodes/no lymphedema. MUSCULOSKELETAL: Normal joints with no swelling. Muscle tone is normal. LABS ON DAY OF ADMISSION TO SWING BED: White count 6.23, hemoglobin 9.1, hematocrit 28.9, platelets 319. Sodium 138, potassium 3.7, BUN 23, creatinine 1.23, glucose 112. EKG shows atrial fibrillation with controlled rate which is intermittent with normal sinus. ASSESSMENT: 1. GENERALIZED WEAKNESS. 2. H. PYLORI. 3. WEIGHT LOSS. 4. DEHYDRATION - IMPROVED. 5. CHRONIC KIDNEY DISEASE. 6. DEMENTIA. 7. HYPOTENSION. 8. ATRIAL FIBRILLATION, RATE CONTROLLED. PLAN: 1. Admit to swing bed for physical and occupational therapy. 2. Continue all medications including Biaxin 250 mg b.i.d. and Flagyl 250 mg b.i.d. for treatment of H. Pylori. 3. Obtain stool sample for test of H. Pylori. 4. Continue with regular diet. 5. Telemetry for 24 hours. 6. Continue daily CBC and CMP. 7. Will follow closely. 8. Fall precautions. TIME SPENT: More than 70 minutes. MTDD
[2018-09-12] MEDS: CARAFATE PO SCH ×3 (06:11→17:25)
[2018-09-12] MEDS: PROTONIX PO SCH (06:11)
[2018-09-12] MEDS: BIAXIN PO SCH ×2 (08:30→17:24)
[2018-09-12] MEDS: ZOLOFT PO SCH (08:30)
[2018-09-12] MEDS: FLAGYL PO SCH ×2 (08:30→21:14)
[2018-09-12] MEDS: ELIQUIS PO SCH ×2 (08:31→21:15)
[2018-09-12] MEDS: K-DUR PO SCH (08:31)
[2018-09-12] MEDS: COREG PO SCH ×2 (08:31→17:25)
[2018-09-12] MEDS: FLOMAX PO SCH ×2 (08:31→21:15)
[2018-09-12] MEDS: PEPTO-BISMOL CHEW PO SCH ×3 (08:33→21:15)
[2018-09-12] MEDS ORDERED: NON-FORMULARY MEDICATION (Losartan Potassium [Cozaar] 50 MG) PO SCH (09:45)
[2018-09-12] MEDS: COZAAR PO SCH (10:06)
--- NOTE | 2018-09-12 10:42 | PCM.PROG ---
Attending Provider: ATTENDING PROVIDER: Dr. ROBIN VÁZQUEZ This patient is seen with Shiloh Ortiz, Nurse Practitioner. DATE OF SERVICE: 09/12/18 SUBJECTIVE: This 88 year old WHITE/ M was hospitalized 09/10/18. The patient is resting comfortably. He is doing well with PT/OT. No abdominal pain and has been eating well. We will anticipate discharge home later in the week. REVIEW OF SYSTEMS: CONSTITUTIONAL: No night sweats. No fatigue, malaise, lethargy. No fever or chills. HEENT: Eyes: No visual changes. No eye pain. No eye discharge. ENT: No runny nose. No epistaxis. No sinus pain. No odynophagia. No congestion. RESPIRATORY: No cough, no congestion. No hemoptysis. No shortness of breath. CARDIOVASCULAR: No angina symptoms. No CHF symptoms. No atypical chest pain for CAD. No palpitations. No orthopnea.. GASTROINTESTINAL: No abdominal pain. No nausea or vomiting. No diarrhea or constipation. No hematemesis. No hematochezia. GENITOURINARY: No urgency. No frequency. No dysuria. No hematuria. No obstructive symptoms. No discharge. No pain. No significant abnormal bleeding. MUSCULOSKELETAL: No musculoskeletal pain; no joint swelling. Weakness. NEUROLOGICAL: Awake, alert, Intermittent confusion. No headache. No neck pain. No syncope. No seizures. No dizziness. PSYCHIATRIC: Not anxious. No depression. No suicidal thoughts. No homicidal thoughts. SKIN: No rash. No lesions. No wounds. ENDOCRINE: No unexplained weight loss. No weight gain. HEMATOLOGIC/LYMPHATIC: No anemia. No purpura. No petechiae. No prolonged or excessive bleeding. No palpable lymph nodes. PHYSICAL EXAMINATION: GENERAL: The patient is awake, alert., sitting in bed in no distress. VITAL SIGNS: Temperature 98.4 F, Pulse 89, Respiratory Rate 20, BP 145/75, Pulse Ox 95% HEENT: Head normocephalic, atraumatic. Eyes: Extraocular muscles are intact. Pupils are equal, round and reactive to light and accommodation. Ears: No lesions. Nose appeared normal. Throat: No exudate or erythema. NECK: Supple. No JVD, no carotid bruit. No lymphadenopathy or thyromegaly. LUNGS: Diminished breath sounds. Clear to auscultation. Percussion note normal. Chest symmetrical. HEART: S1, S2, no S3. No murmurs. No cyanosis or clubbing. No ascites. Pulses: Dorsalis pedis and posterior tibial pulses +1 to +2 both sides. ABDOMEN: Soft. Non-tender. Bowel sounds active. No CVA tenderness. No mass felt. EXTREMITIES: No edema. Full range of motion of all extremities, equal. NEUROLOGIC: No focal deficit. Cranial nerves II through XII are grossly intact. No headache, no double vision or headache. SKIN: Not dry. Intact. Turgor-normal. LYMPHATIC: No palpable lymph nodes/no lymphedema. MUSCULOSKELETAL: Normal joints with no swelling. Muscle tone is normal. LAB REVIEW: 09/12/18 05:20 09/12/18 05:20 09/12/18 05:20: Sodium 138.0, Potassium 3.69, Chloride 104.4, Carbon Dioxide 24.4, Anion Gap 12.89, BUN 20.5 H, Creatinine 1.23 H, Estimated GFR (MDRD) 56.00 , BUN/Creatinine Ratio 16.66, Glucose 115.4 H, Calcium 8.84, Total Bilirubin 0.37, AST 50.5, ALT 158.5 H, Alkaline Phosphatase 114.0, Total Protein 6.33, Albumin 3.61, Globulin 2.72, Albumin/Globulin Ratio 1.32 09/12/18 05:20: WBC 6.03, RBC 3.29 L, Hgb 9.5 L, Hct 30.5 L, MCV 92.7, MCH 28.9 , MCHC 31.1 L, RDW Coeff of Елена 13.3, Plt Count 311, Immature Gran % (Auto) 0.3 , Neut % (Auto) 56.3, Lymph % (Auto) 30.2, [place] % (Auto) 6.0, Eos % (Auto) 6.5, Baso % (Auto) 0.7, Immature Gran # (Auto) 0.0, Neut # (Auto) 3.4, Lymph # (Auto ) 1.8, [place] # (Auto) 0.4, Eos # (Auto) 0.4, Baso # (Auto) 0.0 ASSESSMENT: Please see below. 1. H. Pylori 2. Acute on chronic kidney disease 3. Weight loss 4. Generalized weakness 5. Atrial fibrillation 6. Hypertension PLAN: 1. Restart Losartan 50mg Plan and coordination of the patient's care discussed in the presence of Negative Developer and nurse. SCRIBED BY: Cade RUTHERFORDist scribed while in presence of service performed by Dr. Vázquez/Shiloh Ortiz APRN on 09/12/18 ([id number])
[2018-09-13] MEDS: PROTONIX PO SCH (06:07)
[2018-09-13] MEDS: CARAFATE PO SCH ×3 (06:07→16:53)
[2018-09-13] MEDS: FLOMAX PO SCH ×2 (09:15→20:09)
[2018-09-13] MEDS: FLAGYL PO SCH (09:15)
[2018-09-13] MEDS: K-DUR PO SCH (09:15)
[2018-09-13] MEDS: PEPTO-BISMOL CHEW PO SCH ×3 (09:16→20:10)
[2018-09-13] MEDS: COZAAR PO SCH (09:16)
[2018-09-13] MEDS: COREG PO SCH ×2 (09:16→16:53)
[2018-09-13] MEDS: BIAXIN PO SCH ×2 (09:16→16:52)
[2018-09-13] MEDS: ZOLOFT PO SCH (09:16)
[2018-09-13] MEDS: ELIQUIS PO SCH ×2 (09:17→20:09)
--- NOTE | 2018-09-13 12:52 | PN ---
DATE OF SERVICE: 09/12/18 SUBJECTIVE: The patient was seen and examined with the Nurse Practitioner. The patient is up and about feeling a lot better. Liver functions are better. Cardiovascular status stable. The patient is in swing bed walking much better. TIME SPENT: More than 30 minutes. Plan and coordination of the patient's care discussed in the presence of nurse. TARA
[2018-09-13] MEDS ORDERED: ANTIVERT PO PRN (15:55)
[2018-09-14] MEDS: PROTONIX PO SCH (05:43)
[2018-09-14] MEDS: CARAFATE PO SCH ×3 (05:43→16:22)
[2018-09-14 05:47] VITALS: BP 143/62; TEMP 97.8
[2018-09-14] MEDS: K-DUR PO SCH (10:22)
[2018-09-14] MEDS: COREG PO SCH ×3 (10:22→16:31)
[2018-09-14] MEDS: FLOMAX PO SCH (10:22)
[2018-09-14] MEDS: PEPTO-BISMOL CHEW PO SCH ×2 (10:22→16:22)
[2018-09-14] MEDS: COZAAR PO SCH (10:23)
[2018-09-14] MEDS: ZOLOFT PO SCH (10:23)
[2018-09-14] MEDS: ELIQUIS PO SCH (10:23)
--- NOTE | 2018-09-14 10:54 | PCM.PROG ---
Attending Provider: ATTENDING PROVIDER: Dr. ROBIN VÁZQUEZ This patient is seen with Shiloh Ortiz, Nurse Practitioner. DATE OF SERVICE: 09/14/18 SUBJECTIVE: This 88 year old WHITE/ M was hospitalized 09/10/18. The patient is resting comfortably. He is eating well and dizziness as resolved. We plan to go home and stay with the son. He has completed physical therapy. REVIEW OF SYSTEMS: CONSTITUTIONAL: No night sweats. No fatigue, malaise, lethargy. No fever or chills. HEENT: Eyes: No visual changes. No eye pain. No eye discharge. ENT: No runny nose. No epistaxis. No sinus pain. No odynophagia. No congestion. RESPIRATORY: No cough, no congestion. No hemoptysis. No shortness of breath. CARDIOVASCULAR: No angina symptoms. No CHF symptoms. No atypical chest pain for CAD. No palpitations. No orthopnea.. GASTROINTESTINAL: No abdominal pain. No nausea or vomiting. No diarrhea or constipation. No hematemesis. No hematochezia. GENITOURINARY: No urgency. No frequency. No dysuria. No hematuria. No obstructive symptoms. No discharge. No pain. No significant abnormal bleeding. MUSCULOSKELETAL: No musculoskeletal pain; no joint swelling. NEUROLOGICAL: Awake, alert, oriented to time, place and person. No headache. No neck pain. No syncope. No seizures. No dizziness. PSYCHIATRIC: Not anxious. No depression. No suicidal thoughts. No homicidal thoughts. SKIN: No rash. No lesions. No wounds. ENDOCRINE: No unexplained weight loss. No weight gain. HEMATOLOGIC/LYMPHATIC: No anemia. No purpura. No petechiae. No prolonged or excessive bleeding. No palpable lymph nodes. PHYSICAL EXAMINATION: GENERAL: The patient is awake, alert and oriented, lying in bed in no distress. VITAL SIGNS: Temperature 97.8 F, Pulse 82, Respiratory Rate 16, BP 143/62, Pulse Ox 97% HEENT: Head normocephalic, atraumatic. Eyes: Extraocular muscles are intact. Pupils are equal, round and reactive to light and accommodation. Ears: No lesions. Nose appeared normal. Throat: No exudate or erythema. NECK: Supple. No JVD, no carotid bruit. No lymphadenopathy or thyromegaly. LUNGS: Diminished breath sounds. Clear to auscultation. Percussion note normal. Chest symmetrical. HEART: S1, S2, no S3. No murmurs. No cyanosis or clubbing. No ascites. Pulses: Dorsalis pedis and posterior tibial pulses +1 to +2 both sides. ABDOMEN: Soft. Non-tender. Bowel sounds active. No CVA tenderness. No mass felt. EXTREMITIES: No edema. Full range of motion of all extremities, equal. NEUROLOGIC: No focal deficit. Cranial nerves II through XII are grossly intact. No headache, no double vision or headache. SKIN: Not dry. Intact. Turgor-normal. LYMPHATIC: No palpable lymph nodes/no lymphedema. MUSCULOSKELETAL: Normal joints with no swelling. Muscle tone is normal. LAB REVIEW: 09/14/18 04:30 09/14/18 04:30 09/14/18 04:30: Sodium 141.5, Potassium 3.80, Chloride 108.5 H, Carbon Dioxide 24.8, Anion Gap 12.00, BUN 26.1 H, Creatinine 1.39 H, Estimated GFR (MDRD) 48.00 , BUN/Creatinine Ratio 18.77, Glucose 116.3 H, Calcium 8.87, Total Bilirubin 0.42, AST 39.1, ALT 108.7 H D, Alkaline Phosphatase 101.6, Total Protein 6.17 L , Albumin 3.57, Globulin 2.60, Albumin/Globulin Ratio 1.37 09/14/18 04:30: WBC 6.24, RBC 3.13 L, Hgb 9.3 L, Hct 29.8 L, MCV 95.2 H, MCH 29.7, MCHC 31.2 L, RDW Coeff of Елена 14.0, Plt Count 253, Immature Gran % (Auto) 0.6, Neut % (Auto) 55.9, Lymph % (Auto) 28.0, [place] % (Auto) 7.5, Eos % (Auto) 7.2 H, Baso % (Auto) 0.8, Immature Gran # (Auto) 0.0, Neut # (Auto) 3.5, Lymph # (Auto) 1.8, [place] # (Auto) 0.5, Eos # (Auto) 0.5, Baso # (Auto) 0.1 ASSESSMENT: Please see below. 1. H. Pylori 2. Acute on chronic kidney disease 3. Weight loss 4. Generalized weakness 5. Atrial fibrillation 6. Hypertension 7. Abdominal pain resolved. PLAN: 1. Discharge home 2. Home Health for Physical Therapy, Occupational Therapy and Nursing. 3. Followup in office next week 4. Continue Medications he was on here 5. Risk of falls and bleeding while on Eliquis discussed. 6. The patient would benefit from rolling walker at home for safe ambulation due to weakness. Plan and coordination of the patient's care discussed in the presence of Employee Communications Specialist and nurse. SCRIBED BY: Tyron RUTHERFORD scribed while in presence of service performed by Dr. Vázquez/Shiloh Ortiz APRN on 09/14/18 (0800)
--- NOTE | 2018-09-19 13:00 | CM.DICTOOL ---
ADMISSION: 09/10/18 11:39 DISCHARGE: August DATE OF SERVICE: 09/14/18 FINAL DIAGNOSIS SYNCOPE RECENT FALL DECLINE IN MOBILITY AND DECREASED SAFETY AWARENESS DEHYDRATION, RESOLVED ANEMIA HYPERTENSION ATRIAL FIBRILLATION (ON ELIQUIS) DM, TYPE 2 (A1C 5.9 2018) TRIGEMINAL NEURALGIA POLYARTHRITIS CHRONIC SINUSITIS DEPRESSION BPH DJD SPINE RIGHT SCIATICA H PYLORI SERUM POSITIVE BPH CKD, STAGE 3 HYPERGLYCEMIA WEIGHT LOSS BILATERAL TYMPANOSTOMY TUBE INSERTION (08/07/18 DR. CESAR) LAST VITALS Temp Pulse Resp BP Pulse Ox 97.8 F 82 16 143/62 H 97 09/14/18 05:45 09/14/18 05:45 09/14/18 05:45 09/14/18 05:45 09/14/18 05:45 TAKE THESE MEDICATIONS AT HOME Apixaban (Eliquis) 5 mg PO BID [facility] Last Admin: 09/14/18 10:23 Dose: 5 mg Carvedilol (Coreg) 6.25 mg PO BIDWM [facility] Last Admin: 09/14/18 10:22 Dose: 6.25 mg Losartan Potassium (Cozaar) 50 mg PO DAILY [facility] Last Admin: 09/14/18 10:23 Dose: 50 mg Meclizine HCl (Antivert) 25 mg PO TID PRN PRN Reason: Vertigo Last Admin: 09/13/18 16:53 Dose: 25 mg Pantoprazole Sodium (Protonix) 40 mg PO QDAC [facility] Last Admin: 09/14/18 05:43 Dose: 40 mg Sertraline HCl (Zoloft) 50 mg PO DAILY [facility] Last Admin: 09/14/18 10:23 Dose: 50 mg Sucralfate (Carafate) 1 gm PO TIDAC [facility] Last Admin: 09/14/18 10:22 Dose: 1 gm Tamsulosin HCl (Flomax) 0.4 mg PO DAILY [facility] Last Admin: 09/14/18 10:22 Dose: 0.4 mg ALLERGIES levofloxacin [From Levaquin] Adverse Reaction (Verified 10/21/17 01:45) Penicillins Adverse Reaction (Verified 10/21/17 01:46) DISCONTINUED MEDICATIONS ASPIRIN 81 MG PO DAILY ZEBETA 5 MG PO BID KEFLEX 500 MG PO BID CORTISPORIN OTIC DROPS NEW PRESCRIPTIONS: COREG 6.25 mg PO TWICE A DAY WITH MEALS MECLIZINE 25 mg PO THREE TIMES A DAY NEEDED FOR DIZZINESS ZOLOFT 50 mg PO DAILY CARAFATE SUSP 1 gm PO THREE TIMES A DAY ON EMPTY STOMACH, 30 MINUTES BEFORE MEALS SMOKING: NON SMOKER DISEASE SPECIFIC EDUCATION: SYNCOPE FALLS ELIQUIS, RISK OF BLEEDING MEDICATIONS FOLLOW UP APPOINTMENTS LAB REVIEW: 09/14/18 04:30 09/14/18 04:30 09/14/18 04:30: Sodium 141.5, Potassium 3.80, Chloride 108.5 H, Carbon Dioxide 24.8, Anion Gap 12.00, BUN 26.1 H, Creatinine 1.39 H, Estimated GFR (MDRD) 48.00 , BUN/Creatinine Ratio 18.77, Glucose 116.3 H, Calcium 8.87, Total Bilirubin 0.42, AST 39.1, ALT 108.7 H D, Alkaline Phosphatase 101.6, Total Protein 6.17 L , Albumin 3.57, Globulin 2.60, Albumin/Globulin Ratio 1.37 09/14/18 04:30: WBC 6.24, RBC 3.13 L, Hgb 9.3 L, Hct 29.8 L, MCV 95.2 H, MCH 29.7, MCHC 31.2 L, RDW Coeff of Елена 14.0, Plt Count 253, Immature Gran % (Auto) 0.6, Neut % (Auto) 55.9, Lymph % (Auto) 28.0, [place] % (Auto) 7.5, Eos % (Auto) 7.2 H, Baso % (Auto) 0.8, Immature Gran # (Auto) 0.0, Neut # (Auto) 3.5, Lymph # (Auto) 1.8, [place] # (Auto) 0.5, Eos # (Auto) 0.5, Baso # (Auto) 0.1 PLAN: DISCHARGE HOME TODAY 09/14/2018 DIET: REGULAR ACTIVITY: GRADUALLY INCREASE ACTIVITY ABLE USE ROLLING WALKER FOR SAFE AMBULATION FOLLOW UP DR. VÁZQUEZ/AWA DANIELSON APRN ON MondayAugust AT 1045 AM. PLEASE CALL [phone] AND RESCHEDULE IF UNABLE TO KEEP. FOLLOW UP APPOINTMENT HAS BEEN ARRANGED WITH DR. CESAR ON MondayAugust AT 915 AM. PLEASE CALL [phone] AND RESCHEDULE IF UNABLE TO KEEP. A REFERRAL TO [facility] HAS BEEN COMPLETED. IF YOU ARE NOT CONTACTED BY MONDAY OF NEXT WEEK PLEASE CALL . A REFERRAL FOR HOME HEALTH SERVICES HAS BEEN ARRANGED WITH [facility] FOR PT /OT, CUSTODIAL FOR MEDICATION MANAGEMENT, ASSESSMENT, VITAL SIGNS. CODE STATUS: FULL CODE ALERT, ORIENTED X3. FORGETFUL AT TIMES. MR. ADORNO IS AGREEABLE WITH DISCHARGE TODAY, HE WILL BE GOING TO STAY WITH HIS SON FOR SEVERAL DAYS. HIS SON RESIDES IN THE [facility]. PHYSICAL THERAPY HAS RECOMMENDED A ROLLING WALKER FOR SAFE AMBULATION DUE TO GENERALIZED WEAKNESS AND UNSTEADY GAIT. HE IS ABLE TO PERFORM ADL'S WITHOUT ASSISTANCE. HE HAS DENIED ANY EPISODES OF DIZZINESS TODAY. NO FURTHER C/O ABD. PAIN, N/V. STOOL PATTERN HAS BEEN REGULAR FOR HIM. HYDRATION STATUS IS ADEQUATE. SKIN IS INTACT. ROBIN VÁZQUEZ M.D. AWA DANIELSON APRN
--- NOTE | 2018-09-20 07:52 | DS ---
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 CESAR) LAST VITALS: Temp Pulse Resp BP Pulse Ox 97.8 F 82 16 143/62 H 97 09/14/18 05:45 09/14/18 05:45 09/14/18 05:45 09/14/18 05:45 09/14/18 05:45 DISCHARGE INSTRUCTIONS: DISCHARGE HOME TODAY 09/14/2018. FOLLOW UP DR. VÁZQUEZ/AWA DANIELSON APRN ON MondayAugust AT 1045 AM. PLEASE CALL [phone] AND RESCHEDULE IF UNABLE TO KEEP. FOLLOW UP APPOINTMENT HAS BEEN ARRANGED WITH DR. CESAR ON MondayAugust AT 915 AM. PLEASE CALL [phone] AND RESCHEDULE IF UNABLE TO KEEP. A REFERRAL TO [facility] HAS BEEN COMPLETED. IF YOU ARE NOT CONTACTED BY MONDAY OF NEXT WEEK PLEASE CALL . A REFERRAL FOR HOME HEALTH SERVICES HAS BEEN ARRANGED WITH [facility] FOR PT/OT, [facility] FOR MEDICATION MANAGEMENT, ASSESSMENT, VITAL SIGNS. CODE STATUS: FULL CODE. TAKE THESE MEDICATIONS AT HOME: Apixaban (Eliquis) 5 mg PO BID [facility] Carvedilol (Coreg) 6.25 mg PO BIDWM [facility] Losartan Potassium (Cozaar) 50 mg PO DAILY [facility] Meclizine HCl (Antivert) 25 mg PO TID PRN Pantoprazole Sodium (Protonix) 40 mg PO QDAC [facility] Sertraline HCl (Zoloft) 50 mg PO DAILY [facility] Sucralfate (Carafate) 1 gm PO TIDAC [facility] Tamsulosin HCl (Flomax) 0.4 mg PO DAILY [facility] ALLERGIES: levofloxacin [From Levaquin] Adverse Reaction (Verified 10/21/17 01:45) Penicillins Adverse Reaction (Verified 10/21/17 01:46) DISCONTINUED MEDICATIONS: ASPIRIN 81 MG PO DAILY ZEBETA 5 MG PO BID KEFLEX 500 MG PO BID CORTISPORIN OTIC DROPS NEW PRESCRIPTIONS: COREG 6.25 mg PO TWICE A DAY WITH MEALS MECLIZINE 25 mg PO THREE TIMES A DAY NEEDED FOR DIZZINESS ZOLOFT 50 mg PO DAILY CARAFATE SUSP 1 gm PO THREE TIMES A DAY ON EMPTY STOMACH, 30 MINUTES BEFORE MEALS SMOKING: NON SMOKER DISEASE SPECIFIC EDUCATION: SYNCOPE FALLS ELIQUIS, RISK OF BLEEDING MEDICATIONS FOLLOW UP APPOINTMENTS DIET: REGULAR ACTIVITY: GRADUALLY INCREASE ACTIVITY ABLE USE ROLLING WALKER FOR SAFE AMBULATION HOSPITAL COURSE: This is an 88 year old white male who was a direct admit from our office with dizziness and abdominal pain which he stated has been on going for some time. He had lost some weight. He was admitted. CT of the abdomen was normal. Amylase and Lipase were normal. We started him on IV fluids. We did do a stool for H.Pylori which was positive. We placed him on Biaxin and Flagyl. His symptoms of abdominal pain seemed to resolve. He has been eating better. He was placed on swing bed for physical therapy due to generalized weakness from the weight loss. He has since done remarkably well. He has met all his goals with therapy. We will discharge him home in stable condition. He is going to have Home Health for PT and OT. He is going to stay with his son for the next several days. We did place him on Coreg to control his heart rate with his atrial fibrillation. He has done well. Hypertension has been controlled. He is discharged in stable condition. TIME SPENT: More than 60 minutes. LEAHD
--- NOTE | 2018-09-20 14:40 | PN ---
DATE OF SERVICE: 09/13/18 SUBJECTIVE: The patient was seen and examined with the nurse practitioner. The patient is progressing well. He is on the swing bed for physical therapy. Cardiovascular status and liver status is normal. His appetite has been improving. Condition is slowly improving. The problem at home was neglect, not eating right, not taking care of himself with depression playing a part in it. TIME SPENT: More than 30 minutes. Plan and coordination of the patient's care discussed in the presence of nurse. TARA
--- NOTE | 2018-09-20 14:46 | PN ---
DATE OF SERVICE: 09/14/18 SUBJECTIVE: The patient was seen and examined with the nurse practitioner. The patient is improving. He is up and about. Appetite is better. Liver functions are better. Hemoglobin and hematocrit stable. TIME SPENT: More than 30 minutes. Plan and coordination of the patient's care discussed in the presence of nurse. TARA
== END 2018-09-14 16:55 | disposition home or self-care (01) | DRG 312 ==
LOC: SCU 11:39 → MEDSURG A 09-12 12:55 → MEDSURG B 09-12 18:12
PROVIDERS: ADMIT Internal Medicine; ATTEND Internal Medicine
DX: R55 Syncope and collapse (principal); I31.3 Pericardial effusion (noninflammatory); B96.81 Helicobacter pylori [H. pylori] as the cause of diseases classified elsewhere; I95.9 Hypotension, unspecified; I48.91 Unspecified atrial fibrillation; I10 Essential (primary) hypertension; M47.9 Spondylosis, unspecified; M54.31 Sciatica, right side; N18.3 Chronic kidney disease, stage 3 (moderate); D64.9 Anemia, unspecified; J32.9 Chronic sinusitis, unspecified; E11.65 Type 2 diabetes mellitus with hyperglycemia; F03.90 Unspecified dementia, unspecified severity, without behavioral disturbance, psychotic disturbance, mood disturbance, and anxiety; F32.9 Major depressive disorder, single episode, unspecified; R63.4 Abnormal weight loss; R10.9 Unspecified abdominal pain; R45.1 Restlessness and agitation; R27.0 Ataxia, unspecified; R53.83 Other fatigue; R41.0 Disorientation, unspecified; Z79.01 Long term (current) use of anticoagulants
CPT/HCPCS: 36415; 80053; 85025; 87338; 97802

== ENCOUNTER 2018-09-19 09:15 | Outpatient (POV) | payer OTHER | END 2018-09-19 17:00 | LOC: OUTPT 09:15 | PROVIDERS: ATTEND Otolaryngology | DX: H91.90 Unspecified hearing loss, unspecified ear (principal) ==

== ENCOUNTER 2019-10-10 16:11 | Inpatient (IN) ==
[2019-10-10] MEDS ORDERED: NITROSTAT SL PRN (16:26)
[2019-10-10] MEDS ORDERED: VISTARIL INJ IM PRN (16:26)
[2019-10-10] MEDS ORDERED: ATROPINE SULFATE PFS IVP PRN (16:26)
[2019-10-10] MEDS ORDERED: TYLENOL PO PRN (16:26)
[2019-10-10] MEDS ORDERED: XANAX PO PRN (16:39)
[2019-10-10 16:41] VITALS: BMI 24.8
[2019-10-10] MEDS ORDERED: DECADRON 4 MG/ML SDV IM STA (16:47)
[2019-10-10] MEDS: CARAFATE PO SCH (17:06)
[2019-10-10] MEDS: SODIUM CHLORIDE 1,000 ML IV SCH (17:06)
[2019-10-10] MEDS: COREG PO SCH (17:06)
--- NOTE | 2019-10-10 18:17 | CT ---
EXAM: CT chest without contrast HISTORY: Generalized weakness TECHNIQUE: Multi-slice transaxial helical. Coronal and sagital reformations were performed. COMPARISON: Chest radiograph 09/05/2018 per FINDINGS: The heart is on the upper limits of normal in size. Moderate calcified plaques are seen within the t horacic aorta. Moderate calcified plaques are seen within the coronary arteries. No mediastinal joshua nopathy is seen. There is no axillary adenopathy. Bilateral gynecomastia is seen. A gallstone is seen within the gal lbladder. Subtle increased density within the renal collecting system is seen suggesting prior contr ast administration. The pancreas is atrophic. Mild multilevel thoracic spondylosis is seen. Mild dependent atelectasis is seen within the dependent lungs. Tiny calcified granuloma overlies the lingula. No focal airspace consolidation or pleural effusion is seen. IMPRESSION: 1. No acute cardiopulmonary findings. 2. Atherosclerosis including coronary disease. 3. Cholelithiasis. 4. Other chronic/incidental findings as detailed above.
[2019-10-10] MEDS: ELIQUIS PO SCH (20:55)
[2019-10-10] MEDS: FERROUS SULFATE PO SCH (20:55)
[2019-10-10] MEDS ORDERED: NON-FORMULARY MEDICATION (Rosuvastatin [Crestor] 5 MG) PO SCH (21:00)
[2019-10-10] MEDS ORDERED: CRESTOR PO SCH (21:00)
[2019-10-11 05:34] LABS: HEMATOCRIT 38.3 % (42.0-52.0)
[2019-10-11] MEDS: CARAFATE PO SCH ×3 (06:00→17:22)
[2019-10-11] MEDS: SODIUM CHLORIDE 1,000 ML IV SCH (06:03)
[2019-10-11] MEDS ORDERED: PROTONIX PO SCH (06:30)
[2019-10-11] MEDS ORDERED: ASPIRIN EC PO SCH (08:30)
[2019-10-11] MEDS: COREG PO SCH ×2 (08:57→17:22)
[2019-10-11] MEDS: ELIQUIS PO SCH (08:58)
[2019-10-11] MEDS: FERROUS SULFATE PO SCH (08:58)
[2019-10-11] MEDS ORDERED: ZOLOFT PO SCH (09:00)
[2019-10-11] MEDS ORDERED: FLOMAX PO SCH (09:00)
[2019-10-11] MEDS ORDERED: COZAAR PO SCH ×2 (09:00→16:30)
--- NOTE | 2019-10-11 10:31 | PCM.PROG ---
Attending Provider: ATTENDING PROVIDER: Dr. ROBIN VÁZQUEZ DATE OF SERVICE: 10/11/19 SUBJECTIVE: This 89 year old /WHITE M was hospitalized 10/10/19 with generalized weakness and change in mental status, according to the family and sent to see the physician. The patient drove himself to the office. The patient has left posterior temporal low mass 4 x 3 x 2.5 cm. It is irregular. Differential diag nosis is solitary metastasis, lymphoma likely cause, may be high grade brain tumor. REVIEW OF SYSTEMS: CONSTITUTIONAL: No night sweats. No fatigue, malaise, lethargy. No fever or chills. HEENT: Eyes: Diminished vision left eye. No eye pain. No eye discharge. ENT: No runny nose. No epistaxis. No sinus pain. No odynophagia. No congestion. RESPIRATORY: No cough, no congestion. No hemoptysis. No shortness of breath. CARDIOVASCULAR: No angina symptoms. No CHF symptoms. No atypical chest pain for CAD. No palpitations. No orthopnea.. GASTROINTESTINAL: No abdominal pain. No nausea or vomiting. No diarrhea or constipation. No hematemesis. No hematochezia. GENITOURINARY: No urgency. No frequency. No dysuria. No hematuria. No obstructive symptoms. No discharge. No pain. No significant abnormal bleeding. MUSCULOSKELETAL: No musculoskeletal pain; no joint swelling. NEUROLOGICAL: Awake, alert, oriented to time, place and person. No headache. No neck pain. No syncope. No seizures. No dizziness. PSYCHIATRIC: Not anxious. No depression. No suicidal thoughts. No homicidal thoughts. SKIN: No rash. No lesions. No wounds. ENDOCRINE: No unexplained weight loss. No weight gain. HEMATOLOGIC/LYMPHATIC: No anemia. No purpura. No petechiae. No prolonged or excessive bleeding. No palpable lymph nodes. PHYSICAL EXAMINATION: GENERAL: The patient is awake, alert and oriented, lying/sitting in bed in no distress. VITAL SIGNS: Temperature 98.0 F, Pulse 81, Respiratory Rate 18, BP 149/79, Pulse Ox 95% HEENT: Head normocephalic, atraumatic. Eyes: Extraocular muscles are intact. Pupils are equal, round and reactive to light and accommodation. Ears: No lesions. Nose appeared normal. Throat: No exudate or erythema. NECK: Supple. No JVD, no carotid bruit. No lymphadenopathy or thyromegaly. LUNGS: Clear to auscultation. Percussion note normal. Chest symmetrical. HEART: S1, S2, no S3. No murmurs. No cyanosis or clubbing. No ascites. Pulses: Dorsalis pedis and posterior tibial pulses +1 to +2 both sides. ABDOMEN: Soft. Non-tender. Bowel sounds active. No CVA tenderness. No mass felt. EXTREMITIES: No edema. Full range of motion of all extremities, equal. NEUROLOGIC: The patient has diminished vision in the left eye otherwise normal. No focal deficit. Cranial nerves II through XII are grossly intact. No headache, no double vision or headache. SKIN: Warm and dry. Intact. Turgor-normal. LYMPHATIC: No palpable lymph nodes/no lymphedema. MUSCULOSKELETAL: Normal joints with no swelling. Muscle tone is normal. LAB REVIEW: 10/11/19 05:13 10/11/19 05:13 10/11/19 05:13: Sodium 139.9, Potassium 3.75, Chloride 106.9, Carbon Dioxide 25.2, Anion Gap 11.55, BUN 23.0 H, Creatinine 1.12 H, Estimated GFR (MDRD) 62.00, BUN/Creatinine Ratio 20.53, Glucose 213.4 H D, Calcium 9.31, Total Bilirubin 0.29, AST 25.4, ALT 27.3, Alkaline Phosphatase 84.9, Total Protein 7.00, Albumin 4.01, Globulin 2.99, Albumin/Globulin Ratio 1.34 10/11/19 05:13: WBC 5.63, RBC 4.17 L, Hgb 12.6 L, Hct 38.3 L, MCV 91.8, MCH 30.2, MCHC 32.9, RDW Coeff of Елена 12.6, Plt Count 156, Immature Gran % (Auto) 0.4, Neut % (Auto) 82.0 H, Lymph % (Auto) 16.3, [place] % (Auto) 1.1, Eos % (Auto) 0.0, Baso % (Auto) 0.2, Neut # (Auto) 4.6, Lymph # (Auto) 0.9, [place] # (Auto) 0.1 L, Eos # (Auto) 0.0, Baso # (Auto) 0.0, Immature Gran # (Auto) 0.0 10/10/19 22:35: Urine Color Yellow, Urine Clarity Clear, Urine pH 5.5, Ur Specific [place] 1.020, Urine Protein 1+ H, Urine Glucose (UA) Trace H, Urine Ketones Negative, Urine Blood Negative, Urine Nitrite Negative, Urine Bilirubin Negative, Urine Urobilinogen 0.2, Ur Leukocyte Esterase Negative, Urine Microscopic WBC 0-2, Ur Squamous Epith Cells 0-2, Amorphous Sediment 1+, Urine Bacteria Trace, Urine Mucus Trace 10/10/19 17:05: Sodium 140.5, Potassium 3.64, Chloride 103.2, Carbon Dioxide 30.5 H, Anion Gap 10.44, BUN 25.5 H, Creatinine 1.25 H, Estimated GFR (MDRD) 55.00, BUN/Creatinine Ratio 20.40, Glucose 113.7 H, Calcium 9.58, Total Bilirubin 0.54, AST 32.2, ALT 32.3, Alkaline Phosphatase 99.7, Total Protein 7.67, Albumin 4.40, Globulin 3.27, Albumin/Globulin Ratio 1.34, TSH 2.830 10/10/19 17:05: WBC 5.99, RBC 4.31 L, Hgb 13.2 L, Hct 40.0 L, MCV 92.8, MCH 30.6, MCHC 33.0, RDW Coeff of Елена 12.7, Plt Count 162, Immature Gran % (Auto) 0.3, Neut % (Auto) 60.9, Lymph % (Auto) 29.2, [place] % (Auto) 5.0, Eos % (Auto) 3.8, Baso % (Auto) 0.8, Neut # (Auto) 3.6, Lymph # (Auto) 1.8, [place] # (Auto) 0.3 L, Eos # (Auto) 0.2, Baso # (Auto) 0.1, Immature Gran # (Auto) 0.0 10/10/19 17:05: Free T4 0.84 ASSESSMENT: Please see below. 1. Brain tumor. 2. Hypertension. 3. Dyslipidemia. 4. Depression. 5. Diabetes mellitus. 6. Atrial fibrillation. PLAN: 1. Continue all medications. 2. Case Management to call Dr. Laura Nicole for the patient an appointment to be seen. The patient may be discharged depending upon what the neurosurgeon thinks. 3. The patient is advised to not drive until further orders. Plan and coordination of the patient's care discussed in the presence of Improvement Engineer and nurse. CONDITION: Stable SCRIBED BY: Cade RAMSEYist scribed while in presence of service performed by Dr. ROBIN VÁZQUEZ on 10/11/19 ([id number])
--- NOTE | 2019-10-11 13:27 | HP ---
DATE OF SERVICE: 10/10/19 HISTORY OF PRESENT ILLNESS: 89-year-old White/ male with complaint of intermittent confusion, difficulty reading and difficulty explaining things. He also complains of continued weakness. No signs or symptoms of CHF or CAD. PAST MEDICAL HISTORY: Chronic kidney disease Depression Atrial fibrillation DJD Hypertension Diabetes mellitus Type 2 Polyarteritis Metabolic syndrome Neuralgia Right sciatica BPH Anemia Fatigue Trigeminal neuralgia REVIEW OF SYSTEMS: CONSTITUTIONAL: Fatigue. No fever. HEENT: No sinus drainage, no sore throat. RESPIRATORY: No cough, no congestion. CARDIOVASCULAR: No atypical chest pain for coronary artery disease. No angina, CHF symptoms, palpitations or shortness of breath. GASTROINTESTINAL: No melena or abdominal pain. No GERD. GENITOURINARY: No hematuria, no prostatism, no polyuria. JOURNEYMAN LINEMAN: No blackout, no dizziness, no headache, no double vision. MUSCULOSKELETAL: Osteoarthritis pain. ENDOCRINE: No weight loss, no weight gain. SKIN: Not dry, no rash. PSYCHIATRIC: Not anxious, no depression, no suicidal thoughts, no homicidal thoughts. SOCIAL HISTORY: Nonsmoker. . No alcohol use. MEDICATIONS: Losartan 50 mg daily Protonix 40 mg daily Xanax 0.5 mg daily Flomax 0.4 mg daily Crestor 5 mg daily Fe b.i.d. Eliquis 5 mg b.i.d. Zoloft 50 mg daily Carafate 1 gm t.i.d. Coreg 6.25 mg b.i.d. ALLERGIES: LEVAQUIN PHYSICAL EXAMINATION: V/S: Pulse 70, BP 118/70, temperature 97.7, 02 sat 98%, weight 183.8, BMI 27.8, Height 5'8". GENERAL APPEARANCE: Oriented times three. Pallor positive. Disorganized speech. No slurring. HEENT: Normal. NECK: No JVP, no bruits. RESPIRATORY: Lungs are clear with decreased breath sounds. . CARDIOVASCULAR: S1, S2, no S3, no murmur. No cyanosis, clubbing. No ascites. GI/ABDOMEN: No tenderness. Bowel sounds are active. EXTREMITIES: No edema, pulses +1, equal. JOURNEYMAN LINEMAN: Neurologic within normal limits. Deep tendon reflexes, sensory, motor and gait all normal. RECTAL/PROSTATE: Prostate 09/04 (3.4). 05/04 Rectal: Dr. Cervantes, refused repeat. ASSESSMENT: 1. BRAIN MASS - NEW ON MRI TODAY. 2. CHANGE IN MENTAL STATUS. 3. GENERALIZED WEAKNESS. 4. WEIGHT LOSS. 5. CHRONIC KIDNEY DISEASE, STAGE 3. 6. DEPRESSION. 7. ATRIAL FIBRILLATION ON ELIQUIS. 8. DJD. 9. HYPERTENSION. 10. DIABETES MELLITUS TYPE 2 10/11 6.0 11. POLYARTERITIS. 12. METABOLIC SYNDROME. 13. TRIGEMINAL NEURALGIA. 14. RIGHT SCIATICA 15. NEURALGIA 16. BPH 17. ANEMIA 18. FATIGUE PLAN: 1. Admit. 2. Routine telemetry orders. 3. No cardiac markers. 4. CT of chest if can't do with contrast okay to do without. 5. NS IV @ 75 cc/hr. 6. Continue home medications. 7. 2 cc Decadron IM times one. 8. T4, TSH. 9. CBC, CMP now and daily. 10. Regular diet. 11. UA with culture if indicated. TIME SPENT: More than 70 minutes. MTDD
[2019-10-11 15:34] VITALS: TEMP 98.1
--- NOTE | 2019-10-11 17:07 | CT ---
EXAM: CTA of the neck with and without contrast History: Right carotid stenosis. Comparison: Carotid artery Doppler 10/10/2019 Technique: Multiplanar CT images through the soft tissue neck were obtained with and without the adm inistration of IV contrast. MIP images and 3-D reconstructions were also acquired. Findings: The visualized upper lungs are clear. No acute osseous abnormalities. Degenerative changes within t he lower cervical spine. No prevertebral soft tissue swelling. Epiglottis is not thickened. Patien t is edentulous. Mild mucosal thickening of the bilateral maxillary sinuses. Surrounding soft tissu es demonstrate no acute findings. The bilateral subclavian arteries are patent without significant disease. The bilateral common carot id arteries are patent without significant disease. The bilateral internal carotid arteries are simeon nt without significant disease. No aneurysms are seen. No dissection. The bilateral vertebral kylie kendell are patent without significant disease. Impression: Normal arterial study of the neck
[2019-10-11 18:01] VITALS: BP 170/66
--- NOTE | 2019-10-14 09:47 | PN ---
10/10/2019: Level 5 10/11/2019: D as in discharge MTDD
--- NOTE | 2019-10-14 09:47 | DS ---
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 FOLLOW UP MD APPOINTMENTS: DR. SANCHEZ ON September AT 3:30PM. MAKE SURE THAT PATIENT BRINGS A DISC OF MRI OF THE BRAIN WITH HIM. [facility], [address], [address], DR. VÁZQUEZ/ SHILA VASQUEZ APRN /AWA DANIELSON APRN IN THE OFFICE SATURDAY, OCTOBER 14 @ 115 PM. CODE STATUS: FULL CODE. TAKE THESE MEDICATIONS AT HOME: Alprazolam (Xanax) 0.5 mg PO DAILY PRN PRN Reason: Anxiety Apixaban (Eliquis) 5 mg PO BID [facility] Last Admin: 10/11/19 08:58 Dose: 5 mg Documented by: Carvedilol (Coreg) 6.25 mg PO BIDWM [facility] Last Admin: 10/11/19 08:57 Dose: 6.25 mg Documented by: Ferrous Sulfate (Ferrous Sulfate) 324 mg PO BID [facility] Last Admin: 10/11/19 08:58 Dose: 324 mg Documented by: Losartan Potassium (Cozaar) 50 mg PO BID [facility] -- ( CHANGED) Last Admin: 10/11/19 08:58 Dose: 50 mg Documented by: Pantoprazole Sodium (Protonix) 40 mg PO QDAC [facility] Last Admin: 10/11/19 06:01 Dose: 40 mg Documented by: Rosuvastatin Calcium (Crestor) 5 mg PO BEDTIME [facility] Last Admin: 10/10/19 20:55 Dose: 5 mg Documented by: Sertraline HCl (Zoloft) 50 mg PO DAILY [facility] Last Admin: 10/11/19 08:57 Dose: 50 mg Documented by: Sucralfate (Carafate) 1 gm PO TIDAC [facility] Last Admin: 10/11/19 11:25 Dose: 1 gm Documented by: Tamsulosin HCl (Flomax) 0.4 mg PO DAILY [facility] Last Admin: 10/11/19 08:58 Dose: 0.4 mg Documented by: DEXAMETHASONE 4 MG PO BID -- ( NEW) ALLERGIES: levofloxacin [From Levaquin] Adverse Reaction (Verified 10/21/17 01:45) Penicillins Adverse Reaction (Verified 10/21/17 01:46) DISCONTINUED MEDICATIONS: NONE NEW PRESCRIPTIONS: COZAAR 50 MG PO BID ( CHANGED) DEXAMETHASONE 4 MG PO BID ( NEW) SMOKING: NON- APPLICABLE DISEASE SPECIFIC EDUCATION: BRAIN TUMOR HYPERTENSION DYSLIPIDEMIA A-FIB COVID LAB REVIEW: 10/11/19 05:13 10/11/19 05:13 10/11/19 05:13: Sodium 139.9, Potassium 3.75, Chloride 106.9, Carbon Dioxide 25.2, Anion Gap 11.55, BUN 23.0 H, Creatinine 1.12 H, Estimated GFR (MDRD) 62.00, BUN/Creatinine Ratio 20.53, Glucose 213.4 H D, Calcium 9.31, Total Bilirubin 0.29, AST 25.4, ALT 27.3, Alkaline Phosphatase 84.9, Total Protein 7.00, Albumin 4.01, Globulin 2.99, Albumin/Globulin Ratio 1.34 10/11/19 05:13: WBC 5.63, RBC 4.17 L, Hgb 12.6 L, Hct 38.3 L, MCV 91.8, MCH 30.2, MCHC 32.9, RDW Coeff of Елена 12.6, Plt Count 156, Immature Gran % (Auto) 0.4, Neut % (Auto) 82.0 H, Lymph % (Auto) 16.3, [place] % (Auto) 1.1, Eos % (Auto) 0.0, Baso % (Auto) 0.2, Neut # (Auto) 4.6, Lymph # (Auto) 0.9, [place] # (Auto) 0.1 L, Eos # (Auto) 0.0, Baso # (Auto) 0.0, Immature Gran # (Auto) 0.0 10/10/19 22:35: Urine Color Yellow, Urine Clarity Clear, Urine pH 5.5, Ur Specific [place] 1.020, Urine Protein 1+ H, Urine Glucose (UA) Trace H, Urine Ketones Negative, Urine Blood Negative, Urine Nitrite Negative, Urine Bilirubin Negative, Urine Urobilinogen 0.2, Ur Leukocyte Esterase Negative, Urine Microscopic WBC 0-2, Ur Squamous Epith Cells 0-2, Amorphous Sediment 1+, Urine Bacteria Trace, Urine Mucus Trace 10/10/19 17:05: Sodium 140.5, Potassium 3.64, Chloride 103.2, Carbon Dioxide 30.5 H, Anion Gap 10.44, BUN 25.5 H, Creatinine 1.25 H, Estimated GFR (MDRD) 55.00, BUN/Creatinine Ratio 20.40, Glucose 113.7 H, Calcium 9.58, Total Bilirubin 0.54, AST 32.2, ALT 32.3, Alkaline Phosphatase 99.7, Total Protein 7.67, Albumin 4.40, Globulin 3.27, Albumin/Globulin Ratio 1.34, TSH 2.830 10/10/19 17:05: WBC 5.99, RBC 4.31 L, Hgb 13.2 L, Hct 40.0 L, MCV 92.8, MCH 30.6, MCHC 33.0, RDW Coeff of Елена 12.7, Plt Count 162, Immature Gran % (Auto) 0.3, Neut % (Auto) 60.9, Lymph % (Auto) 29.2, [place] % (Auto) 5.0, Eos % (Auto) 3.8, Baso % (Auto) 0.8, Neut # (Auto) 3.6, Lymph # (Auto) 1.8, [place] # (Auto) 0.3 L, Eos # (Auto) 0.2, Baso # (Auto) 0.1, Immature Gran # (Auto) 0.0 10/10/19 17:05: Free T4 0.84 ACTIVITY: UP WITH SUPERVISION, PENDING NEURO CONSULT WITH DR. MICHOACANO VÁZQUEZ DOES NOT WANT HIM DRIVING AND RECOMMENDED THAT HE STAY WITH SON, VEE AT THIS TIME. DIET: REGULAR HOSPITAL COURSE: Elliott Beyer was seen in the office with intermittent confusion, difficult reading especially from the left eye and sometimes difficulty explaining things. There was some change in the mental status so his son and the family members advised to come to doctors office and be checked out. This patient has these changes lately, past 4-6 months. The patient had MRI of the brain done which showed new 4x3x2.5cm size to the left posterior temporal lobe with high grade primary brain tumor with differential diagnosis of solitary metastasis, lymphoma etc. The patient's CT scan of the chest was negative for acute findings but it shows Cholelithiasis and coronary artery disease. The patient has history of atrial fibrillation, hypertension, diabetes. His last MRI was done in August 2018 which was reported as normal. The patient had no shift from midline but it did show mild edema surrounding the tumor. The patient had no seizure activity. The patient was put on steroids. Dr. Sanchez was called and case was discussed. The patient condition at present time is stable with practically normal with this neurological findings. He is able to walk and carry on his activity of daily living. There is no seizure or convulsions. There is no lateralizing sign. His vision in the left eye has been diminished. The patient was discharged home. The son was called. The patient is not to drive. The son knows about it. In fact according to the patient he has been driving less for past couple of weeks because he is not sure whether he can do it or not. In any case the patient is very responsible. Son understood very well. He is going to stay with son over the weekend. He is to see me on Monday and Dr. Sanchez the neurosurgeon within 7-10 days. The patient's ultrasound of the carotid showed 50-70% carotid stenosis for which he is going to undergo CT angiogram. Echocardiogram done today showed LVH with enlarged LA cavity, normal LV contractility and calcified mitral valve anulus, practically unchanged from the one that was done in August 2018. The patient is in sinus rhythm at present time. He is on Eliquis. Side effects of Eliquis has been discussed. The patient has paroxysmal atrial fibrillation. The patient's A1c was 5.4 in November 2018. He has hyperglycemia mostly related to IV Decadron that was given during the stay in the hospital. The patient's blood sugar would be monitored. He was continued on all the medications as before. New medication would be Dexamethasone PO 4mg twice a day. The patient is strongly advised not to drive. He understood it and practically stay around in the house not to drive a long distance till he is seen by me and Dr. Sanchez. TIME SPENT: More than 60 minutes. TARA
--- NOTE | 2019-10-14 10:20 | ECHO2D ---
Date of Exam: 10/11/2019 Ordering Physician: DR. ROBIN VÁZQUEZ Room #: 116 Reason for Echo: PAROXYSMAL ATRIAL FIBRILLATION, LVH, BRAIN TUMOR M-Mode Normal Adult Results LV Dimensions Normal Adult Results AoV Opening excursions >1.6 >1.6 LVEDD-base- 3.5-5.8 3.7 Ao root dimensions 2.0-3.7 4.0 LVESD-base- 3.1-4.6 L. Atrium dimensions 1.9-3.8 4.2 Post. Wall thickness 0.8-1.1 1.2 IV septum (thickness) 0.7-1.2 1.2 Post. Wall excursion 0.72-1.3 NORMAL Septal motion NORMAL Systolic motion R. Ventricular cavity 1.5-2.0 NORMAL LVEF 60% 71% Paradoxical septal wall motion NORMAL 2-D : CALCIFIC MITRAL VALVE ANNULUS, ENLARGED LEFT ATRIAL CAVITY AND DILATED AORTIC ROOT, NORMAL LEFT VENTRICLE CONTRACTILITY--NORMAL LEFT VENTRICLE SIZE M-MODE: MV: CALCIFIC MITRAL VALVE ANNULUS AV: DILATED AORTIC ROOT TV: NORMAL PV: NORMAL CHAMBER SIZE: ENLARGED LEFT ATRIAL CAVITY WALL MOTION: NORMAL PERICARDIUM: NORMAL INTERPRETATION: 1. CALCIFIC MITRAL VALVE ANNULUS 2. LEFT VENTRICULAR HYPERTROPHY BORDERLINE 3. LEFT ATRIAL CAVITY ENLARGEMENT 4. MILDLY DILATED AORTIC ROOT 5. NORMAL LEFT VENTRICULAR CONTRACTILITY WITH NORMAL EJECTION FRACTION MTDD
--- NOTE | 2019-10-14 12:58 | CM.DICTOOL ---
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 BPH ANEMIA FATIGUE TRIGEMINAL NEURALGIA LAST VITALS Temp Pulse Resp BP Pulse Ox 98.1 F 75 18 169/74 H 97 10/11/19 14:00 10/11/19 14:00 10/11/19 14:00 10/11/19 14:00 10/11/19 14:00 TAKE THESE MEDICATIONS AT HOME Alprazolam (Xanax) 0.5 mg PO DAILY PRN PRN Reason: Anxiety Apixaban (Eliquis) 5 mg PO BID [facility] Last Admin: 10/11/19 08:58 Dose: 5 mg Documented by: Carvedilol (Coreg) 6.25 mg PO BIDWM [facility] Last Admin: 10/11/19 08:57 Dose: 6.25 mg Documented by: Ferrous Sulfate (Ferrous Sulfate) 324 mg PO BID [facility] Last Admin: 10/11/19 08:58 Dose: 324 mg Documented by: Losartan Potassium (Cozaar) 50 mg PO BID [facility] -- ( CHANGED) Last Admin: 10/11/19 08:58 Dose: 50 mg Documented by: Pantoprazole Sodium (Protonix) 40 mg PO QDAC [facility] Last Admin: 10/11/19 06:01 Dose: 40 mg Documented by: Rosuvastatin Calcium (Crestor) 5 mg PO BEDTIME [facility] Last Admin: 10/10/19 20:55 Dose: 5 mg Documented by: Sertraline HCl (Zoloft) 50 mg PO DAILY [facility] Last Admin: 10/11/19 08:57 Dose: 50 mg Documented by: Sucralfate (Carafate) 1 gm PO TIDAC [facility] Last Admin: 10/11/19 11:25 Dose: 1 gm Documented by: Tamsulosin HCl (Flomax) 0.4 mg PO DAILY [facility] Last Admin: 10/11/19 08:58 Dose: 0.4 mg Documented by: DEXAMETHASONE 4 MG PO BID -- ( NEW) ALLERGIES levofloxacin [From Levaquin] Adverse Reaction (Verified 10/21/17 01:45) Penicillins Adverse Reaction (Verified 10/21/17 01:46) DISCONTINUED MEDICATIONS NONE NEW PRESCRIPTIONS: COZAAR 50 MG PO BID ( CHANGED) DEXAMETHASONE 4 MG PO BID ( NEW) SMOKING: NON- APPLICABLE DISEASE SPECIFIC EDUCATION: BRAIN TUMOR HTN DYSLIPIDEMIA A-FIB COVID LAB REVIEW: 10/11/19 05:13 10/11/19 05:13 10/11/19 05:13: Sodium 139.9, Potassium 3.75, Chloride 106.9, Carbon Dioxide 25.2, Anion Gap 11.55, BUN 23.0 H, Creatinine 1.12 H, Estimated GFR (MDRD) 62.00, BUN/Creatinine Ratio 20.53, Glucose 213.4 H D, Calcium 9.31, Total Bilirubin 0.29, AST 25.4, ALT 27.3, Alkaline Phosphatase 84.9, Total Protein 7.00, Albumin 4.01, Globulin 2.99, Albumin/Globulin Ratio 1.34 10/11/19 05:13: WBC 5.63, RBC 4.17 L, Hgb 12.6 L, Hct 38.3 L, MCV 91.8, MCH 30.2, MCHC 32.9, RDW Coeff of Елена 12.6, Plt Count 156, Immature Gran % (Auto) 0.4, Neut % (Auto) 82.0 H, Lymph % (Auto) 16.3, [place] % (Auto) 1.1, Eos % (Auto) 0.0, Baso % (Auto) 0.2, Neut # (Auto) 4.6, Lymph # (Auto) 0.9, [place] # (Auto) 0.1 L, Eos # (Auto) 0.0, Baso # (Auto) 0.0, Immature Gran # (Auto) 0.0 10/10/19 22:35: Urine Color Yellow, Urine Clarity Clear, Urine pH 5.5, Ur Specific [place] 1.020, Urine Protein 1+ H, Urine Glucose (UA) Trace H, Urine Ketones Negative, Urine Blood Negative, Urine Nitrite Negative, Urine Bilirubin Negative, Urine Urobilinogen 0.2, Ur Leukocyte Esterase Negative, Urine Microscopic WBC 0-2, Ur Squamous Epith Cells 0-2, Amorphous Sediment 1+, Urine Bacteria Trace, Urine Mucus Trace 10/10/19 17:05: Sodium 140.5, Potassium 3.64, Chloride 103.2, Carbon Dioxide 30.5 H, Anion Gap 10.44, BUN 25.5 H, Creatinine 1.25 H, Estimated GFR (MDRD) 55.00, BUN/Creatinine Ratio 20.40, Glucose 113.7 H, Calcium 9.58, Total Bilirubin 0.54, AST 32.2, ALT 32.3, Alkaline Phosphatase 99.7, Total Protein 7.67, Albumin 4.40, Globulin 3.27, Albumin/Globulin Ratio 1.34, TSH 2.830 10/10/19 17:05: WBC 5.99, RBC 4.31 L, Hgb 13.2 L, Hct 40.0 L, MCV 92.8, MCH 30.6, MCHC 33.0, RDW Coeff of Елена 12.7, Plt Count 162, Immature Gran % (Auto) 0.3, Neut % (Auto) 60.9, Lymph % (Auto) 29.2, [place] % (Auto) 5.0, Eos % (Auto) 3.8, Baso % (Auto) 0.8, Neut # (Auto) 3.6, Lymph # (Auto) 1.8, [place] # (Auto) 0.3 L, Eos # (Auto) 0.2, Baso # (Auto) 0.1, Immature Gran # (Auto) 0.0 10/10/19 17:05: Free T4 0.84 PLAN: DISCHARGE HOME WITH SON TODAY, September ACTIVITY: UP WITH SUPERVISION, PENDING NEURO CONSULT WITH DR. MICHOACANO VÁZQUEZ DOES NOT WANT HIM DRIVING AND RECOMMENDED THAT HE STAY WITH SON, VEE AT THIS TIME. FOLLOW UP MD APPOINTMENTS: DR. RÍOS ON September AT 3:30PM. MAKE SURE THAT PATIENT BRINGS A DISC OF MRI OF THE BRAIN WITH HIM. [facility] [address] DR[address] VÁZQUEZ/ SHILA VASQUEZ APRN / AWA DANIELSON APRN IN THE OFFICE SATURDAY, OCTOBER 14 @ 115 PM DIET: REGULAR CODE STATUS: FULL CODE MR ADORNO IS ALERT AND ORIENTED X 4. HAS SOME DISORGANIZED SPEECH, GENERAL WEAKNESS AND LT SIDED FACIAL SLIGHT NUMBNESS AND DECREASED VISUAL ACUITY LT EYE. REMAINS PLEASANT. NO ACUTE SPIRITUAL OR EMOTIONAL CONCERNS. VERBALIZES NEED TO FOLLOW UP WITH NEUROLOGY AND PLANS TO. NUTRITIONAL AND FLUID INTAKE GOOD. IS UP WITH SLIGHT UNSTEADY GAIT. CONTINENT OF BOWEL AND BLADDER. LAST BM 10/11/2019. SON, VEE VERBALIZED NEURO F/U APPOINTMENT, NO DRIVING AND THAT MR. ADORNO NEEDS TO STAY WITH HIM. DOES NOT NEED TO BE ALONE DUE TO FORGETFULNESS, WEAKNESS AND UNSTEADY GAIT. MD AWA MORIN, BRENDAN VASQUEZ APRN
--- NOTE | 2019-10-16 11:15 | PN ---
DATE OF SERVICE: 10/11/2019 SUBJECTIVE: The patient was hospitalized yesterday. He is up and about and oriented to time, place and person. Overall obvious gross neurological examination is negative. The patient has diminished vision of the left eye. Face is symmetrical and both extremity strength is equal. Cardiovascular status is normal. Echo was done which showed normal LV contractility with borderline LVH with enlarged LA cavity. The patient has a mass 4x3x2.5cm size left posterior temporal area, looks like primary tumor. CT scan of the chest is negative for any abnormal findings indicating insidious process. The patient was explained about all these findings. He says that he was somewhat unsteady while driving his car but he had already cut down on his driving. He promised me that he would drive. The son has already been informed about it. I had talk with Dr. Sanchez and the patient is going to be seen as an outpatient. In the mean time we still start the patient on Dexamethasone orally. The patient has no seizures. CONDITION: Stable TIME SPENT: More than 30 minutes. Plan and coordination of the patient's care discussed in the presence of nurseGalen [email or web address]
== END 2019-10-11 19:34 | disposition home or self-care (01) | DRG 55 ==
LOC: MEDSURG B 16:11
PROVIDERS: ADMIT Internal Medicine; ATTEND Internal Medicine